=== PATIENT | female | born 1955 | race Caucasian/White ===

== ENCOUNTER 2016-11-14 13:43 | Emergency (ER) | payer OTHER ==
[~2016-11-14] VITALS: Ht 162.6 cm; Wt 61.9 kg
[~2016-11-14 13:43] MED LIST: INSDGI SQ
[2016-11-14 13:53] VITALS: TEMP 36.7; Ht 162.6 cm; Wt 61.9 kg
--- NOTE | 2016-11-14 14:31 | EMERGENCY ROOM VISIT NOTE ---
ED Visit Note First contact with patient: 14:02 Chief Complaint: RIGHT Knee Pain History of Present Illness: This patient is a 61-year-old female who presents to the emergency Department this afternoon for evaluation of her ongoing RIGHT knee pain. She reports that she noticed a "pop" sensation to the knee after she had been in a squatting position. She is had most pain to the anterior surface of the knee which is worse with ambulation and flexion. She denies any previous history of injury or fracture to the affected knee. She denies any numbness or tingling into the distal extremity. She rates her current discomfort as a 10/10. The patient is tried nothing gdbx-asl-ewzbudu for her symptoms. She denies any associated low back pain, hip pain, ankle pain, or foot pain. Medications: Reviewed and discussed with the patient. Allergies: Hydrocodone, tramadol PMH: No pertinent past medical history. SHx: Patient is a 61-year-old female who lives locally. ROS: All pertinent positive and negative review of systems are appropriately documented in the History of Present Illness. Physical Exam: VITAL SIGNS - Vital signs and nursing notes were reviewed. GENERAL - 61-year-old female appearing her stated age and in noticeable discomfort throughout the exam. MUSCULOSKELETAL - RIGHT knee without erythema, edema, and ecchymosis. Mild tenderness to palpation appreciated over the to the anterior and bilateral aspects of the knee. +5/5 strength appreciated bilaterally. No posterior sag sign. RANGE OF MOTION: Greater than 90 Flexion with 0 Extension. PATELLAR APPREHENSION TEST: Unremarkable. VARUS/VALGUS STRESS: Unremarkable. JESSY'S TEST: Without guarding. Strong Endpoint. ANTERIOR/POSTERIOR DRAWER TEST: Without guarding. Strong endpoint. Angie TEST: No catching, popping, or snapping. NEUROLOGIC/VASCULAR - Neurovascularly intact distally with +3/5 dorsalis pedis pulses palpated bilaterally. Normal sensation to light and sharp touch appreciated distally. IMAGING: RIGHT KNEE 3 VIEWS HISTORY: Right anterior knee pain. COMPARISON: None. FINDINGS: There is no fracture or dislocation. Soft tissues are unremarkable. No radiopaque foreign bodies. No knee effusion. IMPRESSION: No fractures. ED Course: Patient was seen and evaluated by myself. X-rays were obtained of the affected knee. Imaging results as above. Images were discussed and reviewed with the patient who acknowledges understanding. Patient will follow-up with her orthopedic surgeon from today's visit. She will return for any changing or worsening symptoms. Patient discharged home in good condition. In evaluation and treatment of this patient following differential diagnoses were considered: The fracture, knee dislocation, patellar fracture, tibial plateau fracture, femur head fracture, ACL injury, PCL injury, MCL injury, LCL injury, pes anserine bursitis, hemarthroses, septic arthritis, or gout. Impression: RIGHT Knee Pain - Likely Meniscal Injury Discharge Instructions: You have been treated in the Emergency Department for Knee Pain - Possible Meniscal Injury. For pain control, you can use the following myqm-mrw-amhserg medicines (if >12 yo): - Regular strength (325mg/tab) Tylenol (acetaminophen) 2 tabs every 4-6 hours as needed. Do not exceed 12 tablets in a 24 hour period. Avoid taking more than 4 grams (4000 mg) of Tylenol per day. This includes any other sources of acetaminophen you may take on a regular basis. - Regular strength (200 mg/tab) Advil (ibuprofen) 1-2 tabs every 4-6 hours as needed. Do not exceed a dose of 3200 mg per day. If this is a recent injury (<24 hrs), ice can be applied to the area of pain for the first 3 days to help decrease pain and inflammation. Ice massages can be performed by freezing water in a paper cup, peeling back the cup to expose the ice and then massaging over the affected area. Follow-up with your orthopedic surgeon from today's visit. Return to the Emergency Department if your current symptoms worsen despite treatment course outlined above. Problem List Medical Problems: (1) Arm pain, right Status: Resolved (2) Arm pain, right Status: Resolved (3) DIAB LORA WO COMPL, TYPE II OR UNSPEC TYPE, NOT UNCNTRLD Status: Chronic (4) Hand contusion Status: Resolved (5) HYPERLIPIDEMIA NEC/NOS Status: Chronic (6) HYPERTENSION NOS Status: Chronic (7) Sinusitis Status: Resolved (8) Viral URI with cough Status: Resolved Current/Historical Medications Scheduled Aspirin (Aspirin Ec), 81 MG PO DAILY Cyanocobalamin (Vitamin B-12), 1,000 MCG PO DAILY Insulin Glargine (Lantus), 12 UNITS SC QAM Lisinopril (Lisinopril), 2.5 MG PO DAILY Metformin Hcl (Glucophage), 500 MG PO TID Simvastatin (Zocor), 20 MG PO QPM Allergies Coded Allergies: Hydrocodone (Verified Adverse Reaction, Unknown, nausea, 11/14/16) [facility] Tramadol (Verified Adverse Reaction, Unknown, nausea, 11/14/16) [facility] Vital Signs Date Time Temp Pulse Resp B/P Pulse Ox O2 Delivery O2 Flow Rate FiO2 11/14/16 14:54 83 17 111/74 96 11/14/16 13:53 36.7 86 18 111/74 97 Room Air Departure Information Impression Primary Impression: Pain of meniscus of right knee Dispostion Home / Self-Care Condition GOOD Referrals Pro,Aldair Fernandes M.D. (PCP) Que Dwyer, DO Forms HOME CARE DOCUMENTATION FORM, IMPORTANT VISIT INFORMATION Patient Instructions ED Knee Pain Meniscus Injury [place], My [facility] Additional Instructions You have been treated in the Emergency Department for Knee Pain - Possible Meniscal Injury. For pain control, you can use the following hucx-var-qgvuvws medicines (if >12 yo): - Regular strength (325mg/tab) Tylenol (acetaminophen) 2 tabs every 4-6 hours as needed. Do not exceed 12 tablets in a 24 hour period. Avoid taking more than 4 grams (4000 mg) of Tylenol per day. This includes any other sources of acetaminophen you may take on a regular basis. - Regular strength (200 mg/tab) Advil (ibuprofen) 1-2 tabs every 4-6 hours as needed. Do not exceed a dose of 3200 mg per day. If this is a recent injury (<24 hrs), ice can be applied to the area of pain for the first 3 days to help decrease pain and inflammation. Ice massages can be performed by freezing water in a paper cup, peeling back the cup to expose the ice and then massaging over the affected area. Follow-up with your orthopedic surgeon from today's visit. Return to the Emergency Department if your current symptoms worsen despite treatment course outlined above.
--- NOTE | 2016-11-14 14:31 | DIAGNOSTIC IMAGING REPORT ---
RIGHT KNEE 3 VIEWS HISTORY: Right anterior knee pain. COMPARISON: None. FINDINGS: There is no fracture or dislocation. Soft tissues are unremarkable. No radiopaque foreign bodies. No knee effusion. IMPRESSION: No fractures. Electronically signed by: Blaise Rand M.D. 11/14/2016 2:29 PM Dictated Date/Time: 11/14/2016 2:27 PM
[2016-11-14 14:54] VITALS: BP 111/74; PULSE 83; O2SAT 96
--- NOTE | 2016-11-14 15:00 | EMERGENCY ROOM VISIT NOTE ---
ED Visit Note First contact with patient: 14:02 I have seen and examined this patient with Michael Earl and generally agree with the treatment plan as discussed. Problem List Medical Problems: (1) Arm pain, right Status: Resolved (2) Arm pain, right Status: Resolved (3) DIAB LORA WO COMPL, TYPE II OR UNSPEC TYPE, NOT UNCNTRLD Status: Chronic (4) Hand contusion Status: Resolved (5) HYPERLIPIDEMIA NEC/NOS Status: Chronic (6) HYPERTENSION NOS Status: Chronic (7) Sinusitis Status: Resolved (8) Viral URI with cough Status: Resolved Current/Historical Medications Scheduled Aspirin (Aspirin Ec), 81 MG PO DAILY Cyanocobalamin (Vitamin B-12), 1,000 MCG PO DAILY Insulin Glargine (Lantus), 12 UNITS SC QAM Lisinopril (Lisinopril), 2.5 MG PO DAILY Metformin Hcl (Glucophage), 500 MG PO TID Simvastatin (Zocor), 20 MG PO QPM Allergies Coded Allergies: Hydrocodone (Verified Adverse Reaction, Unknown, nausea, 11/14/16) [facility] Tramadol (Verified Adverse Reaction, Unknown, nausea, 11/14/16) [facility] Vital Signs Date Time Temp Pulse Resp B/P Pulse Ox O2 Delivery O2 Flow Rate FiO2 11/14/16 14:54 83 17 111/74 96 11/14/16 13:53 36.7 86 18 111/74 97 Room Air Departure Information Impression Primary Impression: Pain of meniscus of right knee Dispostion Home / Self-Care Condition GOOD Referrals Pro,Aldair Fernandes M.D. (PCP) Que Dwyer, DO Forms HOME CARE DOCUMENTATION FORM, Work Instructions, IMPORTANT VISIT INFORMATION Patient Instructions My [facility], ED Knee Pain Meniscus Injury Poss Additional Instructions You have been treated in the Emergency Department for Knee Pain - Possible Meniscal Injury. For pain control, you can use the following rskp-rpx-flxunbl medicines (if >12 yo): - Regular strength (325mg/tab) Tylenol (acetaminophen) 2 tabs every 4-6 hours as needed. Do not exceed 12 tablets in a 24 hour period. Avoid taking more than 4 grams (4000 mg) of Tylenol per day. This includes any other sources of acetaminophen you may take on a regular basis. - Regular strength (200 mg/tab) Advil (ibuprofen) 1-2 tabs every 4-6 hours as needed. Do not exceed a dose of 3200 mg per day. If this is a recent injury (<24 hrs), ice can be applied to the area of pain for the first 3 days to help decrease pain and inflammation. Ice massages can be performed by freezing water in a paper cup, peeling back the cup to expose the ice and then massaging over the affected area. Follow-up with your orthopedic surgeon from today's visit. Return to the Emergency Department if your current symptoms worsen despite treatment course outlined above.
[2017-07-03] MEDS ORDERED: INSDGI SC (14:11)
[2017-07-03] MEDS ORDERED: SIMV20TA2 PO (14:29)
[2017-07-03] MEDS ORDERED: LISI2.5T5 PO (14:29)
[2017-07-03] MEDS ORDERED: CYAN10005 PO (14:29)
[2017-07-03] MEDS ORDERED: ASPI81TA28 PO (18:55)
[2017-07-03] MEDS ORDERED: GLC/500 PO (18:55)
== END 2016-11-14 14:55 | disposition home or self-care (01) ==
LOC: C.EDB 13:45 → C.EDD 14:55
DX: M25.561 Pain in right knee (principal); I10 Essential (primary) hypertension; E11.9 Type 2 diabetes mellitus without complications; E78.5 Hyperlipidemia, unspecified; Z86.19 Personal history of other infectious and parasitic diseases; Z87.828 Personal history of other (healed) physical injury and trauma; Z79.4 Long term (current) use of insulin; Z79.82 Long term (current) use of aspirin; Z79.84 Long term (current) use of oral hypoglycemic drugs; Z79.899 Other long term (current) drug therapy; Z88.6 Allergy status to analgesic agent

== ENCOUNTER 2017-03-22 16:56 | Emergency (ER) | payer OTHER ==
[~2017-03-22] VITALS: Ht 162.6 cm; Wt 61.3 kg
[2017-03-22 17:06] VITALS: TEMP 36.6; Ht 162.6 cm; Wt 61.3 kg
[2017-03-22] MEDS ORDERED: IBUPROFEN 800 MG TAB PO STA (18:09)
[2017-03-22 18:19] VITALS: BP 131/64; PULSE 80; O2SAT 96
--- NOTE | 2017-03-22 18:32 | EMERGENCY ROOM VISIT NOTE ---
ED Visit Note First contact with patient: 17:50 CHIEF COMPLAINT: Ankle pain HISTORY OF PRESENT ILLNESS: This 62-year-old female patient presents to the emergency department with 3 day history of spontaneous right ankle pain. The patient complains of pain along the outside of the ankle. The patient denies pain of the foot. The patient rates the pain as dull and 8/10. The patient is able to bear weight on the foot. Constant pain, worse with movement, weight bearing, and the dependent position. No knee pain, the patient is able to move their toes. No numbness or weakness of the foot, no laceration. The patient has possibly had a previous fracture to this ankle when she was 4 years old. The patient has taken 200 mg ibuprofen for the pain approximately 5 hours ago. The patient denies any other injury or discomfort. She does report swelling but denies redness. REVIEW OF SYSTEMS: A 6 system review of systems was completed with positives and pertinent negatives listed in the HPI. ALLERGIES: Vicodin, tramadol. MEDICATIONS: Vitamin B12, Lisinopril, simvastatin, metformin, aspirin, Lantus. PMH: Diabetes, hypertension, hyperlipidemia, vitamin B12 deficiency. SOCIAL HISTORY: Pt. lives locally with family. She is a current every day smoker. She denies alcohol or drug use. PHYSICAL EXAM: Vital Signs: Reviewed Nurse's notes, vital signs stable. GENERAL : 62-year-old female, no acute distress, appears in mild pain, well-developed, well-nourished. MENTAL STATUS: Alert, oriented to person place and time, and cooperative. MUSCULOSKELETAL: The right ankle is not swollen but is tender over the lateral malleolus, but the skin is intact and there is no ligamentous instability. There is no fifth metatarsal tenderness. There is no tenderness over the rest of the foot. There is no calf or tibia/fibular tenderness. There is no visual deformity. The foot and toes are warm and well-perfused. Dorsalis pedis pulse 2+. Sensation to pain and light touch is intact. Capillary refill less than 2 seconds. EMERGENCY DEPARTMENT COURSE: I examined the patient. I discussed with her the option to xray the ankle, however, no injury noted to ankle or foot, so extremely low suspicion for fracture. Patient is scheduled to see podiatry on Sunday regarding foot pain. Offered x-ray however patient declines and states that she will follow up with podiatry. [] was applied to the ankle under my direction and the position was satisfactory. Neurovascular status was rechecked and intact. The patient was instructed on the use of crutches. The patient was discharged home in good condition. DIAGNOSIS: Right ankle pain DIFFERENTIAL DIAGNOSIS: Contusion, sprain, strain, fracture, stress fracture, overuse injury. DISCHARGE INSTRUCTIONS: Ice and elevation for 2 days, use crutches to avoid weight bearing of the right ankle, wear the joseline wrap and sneakers when up walking around. Do not get the wrap wet. Ibuprofen, 600 mg and Tylenol 1000 mg every 6 hours if needed for pain. See your doctor or an orthopedic surgeon/ code machine operator if there is no improvement in 4 - 5 days. Problem List Medical Problems: (1) Arm pain, right Status: Resolved (2) Arm pain, right Status: Resolved (3) DIAB LORA WO COMPL, TYPE II OR UNSPEC TYPE, NOT UNCNTRLD Status: Chronic (4) Hand contusion Status: Resolved (5) HYPERLIPIDEMIA NEC/NOS Status: Chronic (6) HYPERTENSION NOS Status: Chronic (7) Sinusitis Status: Resolved (8) Viral URI with cough Status: Resolved Current/Historical Medications Scheduled Aspirin (Aspirin Ec), 81 MG PO DAILY Cyanocobalamin (Vitamin B-12), 1,000 MCG PO DAILY Insulin Glargine (Lantus), 12 UNITS SC QAM Lisinopril (Lisinopril), 2.5 MG PO DAILY Metformin Hcl (Glucophage), 500 MG PO TID Simvastatin (Zocor), 20 MG PO QPM Scheduled PRN Ibuprofen Tab (Motrin), 600 MG PO Q6H PRN for Pain Allergies Coded Allergies: Hydrocodone (Verified Adverse Reaction, Unknown, nausea, 11/14/16) [facility] Tramadol (Verified Adverse Reaction, Unknown, nausea, 11/14/16) [facility] Vital Signs Date Time Temp Pulse Resp B/P (MAP) Pulse Ox O2 Delivery O2 Flow Rate FiO2 03/22/17 18:19 80 18 131/64 96 Room Air 03/22/17 17:06 36.6 84 20 110/57 96 Room Air Medications Administered Medications (Trade) Dose Ordered Sig/Domenica Route Start Time Stop Time Status Last Admin Dose Admin Ibuprofen (Motrin Tab) 800 mg NOW STAT PO 03/22/17 18:09 03/22/17 18:11 DC 03/22/17 18:18 800 MG Departure Information Impression Primary Impression: Ankle pain, right Dispostion Home / Self-Care Condition GOOD Prescriptions Ibuprofen Tab (MOTRIN) 600 Mg Tab 600 MG PO Q6H Y for Pain, #60 TAB Prov: Bonny Murray PA-C 03/22/17 Referrals Pro,Aldair Fernandes M.D. (PCP) Patient Instructions My [facility] Additional Instructions ORTHOPEDIC INSTRUCTIONS: Ibuprofen(Motrin, Advil) may be used for fever or pain. Use 600mg every six hours as needed. Take with food. Avoid using more than 2400mg in a 24 hour period. Do not use 2400mg per day for more than three consecutive days without physician direction. Prolonged inappropriate use can lead to stomach upset or ulcers. (AND/OR) Acetaminophen(Tylenol) may be used for fever or pain. Use 1000mg every six hours as needed. Avoid using more than 4000mg in a 24 hour period. Ice compresses for 20 minutes at a time four times daily for 2-3 days. Rest and elevate your injury. Make sure to pad under the splint with a sock, gauze, or an JOSELINE wrap. Do not get the splint wet. If your splint feels excessively tight, you have worsening pain, develop numbness or tingling, or your digits appear blue, loosen the joseline wrap. Then reapply the joseline wrap gently without removing the splint. If your symptoms are not quickly relieved return to the ER for re-evaluation. Return to the ER immediately for any numbness, tingling, severe pain, extreme swelling in the extremity or as needed. Follow-up with your primary care physician or podiatry in 2 to 3 days for a recheck of your current condition. Problem Qualifiers Primary Impression: Ankle pain, right Chronicity: acute Qualified Codes: M25.571 - Pain in right ankle and joints of right foot
[2017-03-22] MEDS ORDERED: IBUP-1427 PO (18:41)
[2017-07-03] MEDS ORDERED: INSDGI SC (14:11)
[2017-07-03] MEDS ORDERED: LISI2.5T5 PO (14:29)
[2017-07-03] MEDS ORDERED: SIMV20TA2 PO (14:29)
[2017-07-03] MEDS ORDERED: CYAN10005 PO (14:29)
[2017-07-03] MEDS ORDERED: ASPI81TA28 PO (18:55)
[2017-07-03] MEDS ORDERED: GLC/500 PO (18:55)
== END 2017-03-22 18:54 | disposition home or self-care (01) ==
LOC: C.EDB 16:57 → C.EDD 18:54
DX: M25.571 Pain in right ankle and joints of right foot (principal); Z79.82 Long term (current) use of aspirin; Z79.4 Long term (current) use of insulin; Z79.899 Other long term (current) drug therapy; E11.9 Type 2 diabetes mellitus without complications; I10 Essential (primary) hypertension; E78.5 Hyperlipidemia, unspecified; E53.8 Deficiency of other specified B group vitamins; F17.210 Nicotine dependence, cigarettes, uncomplicated

== ENCOUNTER 2017-04-21 20:46 | Emergency (ER) | payer OTHER ==
[~2017-04-21] VITALS: Ht 162.6 cm; Wt 60.7 kg
[~2017-04-21 20:46] MED LIST changes: +IBUP-1427 PO; -INSDGI SQ
[2017-04-21 20:47] VITALS: TEMP 36.4; Ht 162.6 cm; Wt 60.7 kg
[2017-04-21] MEDS ORDERED: EMPTY 8 DRAM VIAL ONE (21:30)
[2017-04-21 21:34] VITALS: BP 111/54; PULSE 80; O2SAT 94
--- NOTE | 2017-04-21 21:41 | EMERGENCY ROOM VISIT NOTE ---
History Report prepared by Anthony: Kylee Rouse Under the Supervision of: Dr. Chiquita Chavez M.D. First contact with patient: 20:54 Chief Complaint: RASH Stated Complaint: RASH ON RT FOOT History of Present Illness The patient is a 62 year old female who presents to the Emergency Room with complaints of persistent rash starting 3 days ago. The rash was initially only on her left foot. She noticed today that the rash had spread to her right foot. She notes that she did start wearing new sneakers. They were not tight. She was not wearing socks. She reports burning and itching where the rash is located. She did wash her feet last night. She denies any bloody stools. Source of History: patient Onset: 3 days ago Position: foot (bilateral) Quality: other (rash) Timing: other (persistent) Associated Symptoms: No hematochezia Note: Pt reports burning and itching. Review of Systems See HPI for pertinent positives & negatives. A total of 10 systems reviewed and were otherwise negative. Past Medical & Surgical Medical Problems: (1) Arm pain, right (2) Arm pain, right (3) DIAB LORA WO COMPL, TYPE II OR UNSPEC TYPE, NOT UNCNTRLD (4) Hand contusion (5) HYPERLIPIDEMIA NEC/NOS (6) HYPERTENSION NOS (7) Sinusitis (8) Viral URI with cough Family History Diabetes mellitus Social History Smoking Status: Current Every Day Smoker Alcohol Use: none Drug Use: none Marital Status: single Housing Status: lives alone Occupation Status: disabled Current/Historical Medications Scheduled Aspirin (Aspirin Ec), 81 MG PO DAILY Cyanocobalamin (Vitamin B-12), 1,000 MCG PO DAILY Insulin Glargine (Lantus), 12 UNITS SC QAM Lisinopril (Lisinopril), 2.5 MG PO DAILY Metformin Hcl (Glucophage), 500 MG PO TID Simvastatin (Zocor), 20 MG PO QPM Allergies Coded Allergies: Hydrocodone (Verified Adverse Reaction, Unknown, nausea, 11/14/16) [facility] Tramadol (Verified Adverse Reaction, Unknown, nausea, 11/14/16) [facility] Physical Exam Vital Signs Date Time Temp Pulse Resp B/P (MAP) Pulse Ox O2 Delivery O2 Flow Rate FiO2 04/21/17 21:34 80 18 111/54 94 04/21/17 20:47 36.4 88 18 119/65 95 Room Air Physical Exam Vital signs reviewed. General: Well-appearing female, in no significant distress. HEENT: No scleral icterus, PERRLA, neck supple. Atraumatic. Cardiovascular: Regular rate and rhythm, no extra sounds. Pulmonary: Clear to auscultation bilaterally, normal work of breathing. Abdomen: Soft, nontender, nondistended, positive bowel sounds. Musculoskeletal: Atraumatic, no peripheral edema. Neurologic: Patient awake alert and oriented x 3, full strength in all 4 extremities. Cranial nerves 2 through 12 grossly intact. Skin: Warm, dry, 3 x 4 cm faint petechial nonblanching rash to the dorsum of feet bilaterally. Medical Decision & Procedures Medications Administered Medications (Trade) Dose Ordered Sig/Domenica Route Start Time Stop Time Status Last Admin Dose Admin Diphenhydramine HCl (Benadryl Cap) 50 mg NOW ONCE PO 04/21/17 21:15 04/21/17 21:16 DC 04/21/17 21:29 50 MG ED Course 2107: Past medical records reviewed. The patient was evaluated in room B5. A complete history and physical examination was performed. 2114: Benadryl Cap 50 mg PO. 2119: Upon reevaluation, the patient appeared to have improvement of her symptoms. I discussed findings with her. She verbalized agreement of the treatment plan. She was discharged home. Medical Decision Differential diagnosis: Etiologies such as contact dermatitis, viral exanthem, urticaria, allergic reaction, Lamar-Fabian syndrome, toxic epidermal necrolysis, erythema multiforme, cellulitis, scabies, HSV, varicella, zoster, eczema, staph scalded skin syndrome, fungal infection, as well as others were entertained. Medication Reconciliation: I attest that I have personally reviewed the patient' s current medication list. Blood Pressure Screening: Patient was found to have normal blood pressure on screening and does not require follow-up. This patient was evaluated and appeared to be in no significant distress. Physical exam is consistent with a traumatic petechial rash to the dorsum of the feet bilaterally. Patient states she does not wear socks and she has new sneakers. I suspect these have been causing some trauma. There is no evidence of petechial rash to the plantar surface of the feet, belt line, buttocks or bra line. Patient was informed of the findings, asked to follow-up with her primary care physician this week. She will return to the ER for worsening of symptoms or any medical concerns. Impression Primary Impression: Pruritic rash Additional Impression: Petechial rash Scribe Attestation The scribe's documentation has been prepared under my direction and personally reviewed by me in its entirety. I confirm that the note above accurately reflects all work, treatment, procedures, and medical decision making performed by me. Departure Information Dispostion Home / Self-Care Referrals Aldair Fish M.D. (PCP) Forms HOME CARE DOCUMENTATION FORM, IMPORTANT VISIT INFORMATION, WORK / SCHOOL INSTRUCTIONS Patient Instructions My [facility] Additional Instructions Diagnosis: Rash Benadryl 25-50 mg every 6 hours as needed for itching Wash with warm water and soap Avoid rubbing, tight shoes. Follow up with your doctor this week for reevaluation. Return to the ED for reevaluation if symptoms worsen or spread. Problem Qualifiers
[2017-07-03] MEDS ORDERED: INSDGI SC (14:11)
[2017-07-03] MEDS ORDERED: LISI2.5T5 PO (14:29)
[2017-07-03] MEDS ORDERED: CYAN10005 PO (14:29)
[2017-07-03] MEDS ORDERED: SIMV20TA2 PO (14:29)
[2017-07-03] MEDS ORDERED: ASPI81TA28 PO (18:55)
[2017-07-03] MEDS ORDERED: GLC/500 PO (18:55)
== END 2017-04-21 21:35 | disposition home or self-care (01) ==
LOC: C.EDB 20:46
DX: R23.3 Spontaneous ecchymoses (principal); L29.8 Other pruritus; R21 Rash and other nonspecific skin eruption; E11.9 Type 2 diabetes mellitus without complications; E78.5 Hyperlipidemia, unspecified; I10 Essential (primary) hypertension; Z83.3 Family history of diabetes mellitus; F17.210 Nicotine dependence, cigarettes, uncomplicated

== ENCOUNTER → 2017-04-25 | Outpatient (CLI) | payer OTHER ==
[~2017-04-25] MED LIST changes: +AMOX875T PO; +ASPI81TA28 PO; +CYAN10005 PO; +GLC/500 PO; -IBUP-1427 PO; +INSDGI SC; +LISI2.5T5 PO; +SIMV20TA2 PO
[2017-04-25 13:27] LABS: HEMATOCRIT 42.6 % (37-47); MEAN CELL VOLUME 93.8 fL (80-100); MEAN CORPUSCULAR HEMOGLOBIN 32.4 pg (25-34); MEAN CORPUSCULAR HGB CONC 34.5 g/dl (32-36); MEAN PLATELET VOLUME 9.5 fL (7.4-10.4); PLATELET COUNT 290 K/uL (130-400); RED BLOOD COUNT 4.54 M/uL (4.2-5.4)
== END | disposition home or self-care (01) ==
LOC: C.LABBC 12:01
PROVIDERS: ATTEND Physician Assistant Medical
DX: R23.3 Spontaneous ecchymoses (principal)

== ENCOUNTER → 2017-05-07 | Outpatient (CLI) | payer OTHER ==
[2017-05-07 12:13] LABS: BASO % 0.4 %; BASO ABS # 0.03 K/uL (0-0.2); COMPLETE YES; HEMATOCRIT 45.1 % (37-47); IG% 0.3 %; LYMPH % 26.5 %; LYMPH ABS # 2.08 K/uL (1.2-3.4); MEAN CELL VOLUME 96.4 fL (80-100); MEAN CORPUSCULAR HEMOGLOBIN 33.5 pg (25-34); MEAN CORPUSCULAR HGB CONC 34.8 g/dl (32-36); MEAN PLATELET VOLUME 9.8 fL (7.4-10.4); MONO % 12.5 %; NEUT % 58.3 %; PLATELET COUNT 277 K/uL (130-400); RED BLOOD COUNT 4.68 M/uL (4.2-5.4); WHITE BLOOD COUNT 7.86 K/uL (4.8-10.8)
[2017-05-07 12:23] LABS: ESTIMATED AVERAGE GLUCOSE 137 mg/dl; HA1C FLAG Normal (Normal)
[2017-05-07 12:34] LABS: ALT/SGPT 30 U/L (12-78); BLOOD UREA NITROGEN 9 mg/dl (7-18); BUN/CREATININE RATIO 13.1 (10-20); CALCIUM 9.3 mg/dl (8.5-10.1); CARBON DIOXIDE 28 mmol/L (21-32); CHLORIDE 107 mmol/L (98-107); CHOLESTEROL 161 mg/dl (0-200); CREATININE 0.72 mg/dl (0.60-1.20); GLUCOSE 122 mg/dl (70-99); POTASSIUM 4.4 mmol/L (3.5-5.1); SODIUM 140 mmol/L (136-145)
[2017-05-07 12:37] LABS: ALB/GLOB RATIO 1.1 (0.9-2); ALKALINE PHOSPHATASE 99 U/L (45-117); AST/SGOT 13 U/L (15-37); CHOLESTEROL/HDL RATIO 3.1; HDL CHOLESTEROL 52 mg/dl; LDL CHOLESTEROL CALCULATED 98 mg/dl; TRIGLYCERIDES 53 mg/dl (0-150); VERY LOW DENSITY LIPOPROT CALC 11 mg/dl
== END | disposition home or self-care (01) ==
LOC: C.LAB1850 10:14
PROVIDERS: ATTEND Internal Medicine
DX: E53.8 Deficiency of other specified B group vitamins (principal); E11.9 Type 2 diabetes mellitus without complications; R25.2 Cramp and spasm; E78.5 Hyperlipidemia, unspecified

== ENCOUNTER 2017-07-03 21:37 | Emergency (ER) | payer OTHER ==
[~2017-07-03 21:37] MED LIST changes: -AMOX875T PO
[2017-07-03 21:40] VITALS: BP 129/53; PULSE 84; TEMP 36.7; O2SAT 94
[2017-07-03] MEDS ORDERED: AMOXICIL/CLAVU 875MG HOME PACK PO ONE (22:15)
[2017-07-03] MEDS ORDERED: AMOX875T PO (22:16)
--- NOTE | 2017-07-03 22:37 | EMERGENCY ROOM VISIT NOTE ---
History First contact with patient: 22:08 Chief Complaint: HAND PAIN/INJURY Stated Complaint: RIGHT HAND History of Present Illness The patient is a 62 year old female who presents to the Emergency Room with complaints of right hand pain worsening over the past one to 2 days. The patient believes that she was scratched by her dog 4 days ago and did have small scab on the posterior aspect of the right hand. The patient states that it became more tender over the past 2 days, and the scab fell off. She states that now she has redness on the back of the hand and she is concerned for infection. She rates her discomfort a 4/10. She believes that she is up-to- date on her tetanus. Review of Systems More than 10 systems were reviewed and otherwise negative with the exception of history of present illness. Past Medical/Surgical History Medical Problems: (1) Arm pain, right (2) Arm pain, right (3) DIAB LORA WO COMPL, TYPE II OR UNSPEC TYPE, NOT UNCNTRLD (4) Hand contusion (5) HYPERLIPIDEMIA NEC/NOS (6) HYPERTENSION NOS (7) Sinusitis (8) Viral URI with cough Family History Diabetes mellitus Social History Smoking Status: Current Every Day Smoker Alcohol Use: none Drug Use: none Marital Status: single Housing Status: lives alone Occupation Status: disabled Current/Historical Medications Scheduled Amoxicillin & Pot Clavulanate (Augmentin 875-125 mg), 1 TAB PO BID Aspirin (Aspirin Ec), 81 MG PO DAILY Cyanocobalamin (Vitamin B-12), 1,000 MCG PO DAILY Insulin Glargine (Lantus), 12 UNITS SC QAM Lisinopril (Lisinopril), 2.5 MG PO DAILY Metformin Hcl (Glucophage), 500 MG PO TID Simvastatin (Zocor), 20 MG PO QPM Physical Exam Vital Signs Date Time Temp Pulse Resp B/P (MAP) Pulse Ox O2 Delivery O2 Flow Rate FiO2 07/03/17 21:40 36.7 84 18 129/53 94 Room Air Physical Exam VITALS: Vitals are noted on the nurse's note and reviewed by myself. Vital signs stable. GENERAL: Well-developed, well-nourished, white female, who is in no acute distress and resting comfortably. Patient is cooperative with the examination. HEART: Regular rate and rhythm without murmurs gallops or rubs. LUNGS: Clear to auscultation bilaterally without wheezes, rales or rhonchi. No retractions or accessory muscle use. SKIN: The skin was with a curvilinear scratch to the posterior aspect of the right hand roughly over the third metacarpal. This measures roughly 2 cm in length. There is no significant drainage or discharge from primary injury. There appears to be cellulitis measuring roughly 2-2.5 cm circumferentially around this area. The patient is able to open and close the hand without difficulty. No lymphangitic streaking. Strength is 5/5. Medical Decision & Procedures Medications Administered Medications (Trade) Dose Ordered Sig/Domenica Route Start Time Stop Time Status Last Admin Dose Admin Amoxicillin/ Clavulanate Potassium (Augmentin 875MG Home Pack) 1 homepack UD ONCE PO 07/03/17 22:15 07/03/17 22:16 DC 07/03/17 22:15 1 HOMEPACK ED Course Physical exam and history were performed. Nursing notes, EMR, and Medication List were personally reviewed. Patient appears to have a abrasion to the posterior aspect of her right hand with accompanying cellulitis. The wound may have been caused by a dog scratch, and specifically not a dog bite. The patient will be given a course of Augmentin and instructions to follow with primary care physician. She was asked to follow-up with her PCP and provided back to the ER with any new, worsening, or concerning symptoms. The chart was completed utilizing [employer] Speech Voice Recognition Software. Grammatical errors, random word insertions, pronoun errors, and incomplete sentences are an occasional consequence of this system due to software limitations, ambient noise, and hardware issues. Any formal questions or concerns about the content, text, or information contained within the body of this dictation should be directly addressed to the provider for clarification. . Medical Decision Differential diagnosis: Etiologies such as cellulitis, abscess, MRSA infection, DVT, necrotizing fasciitis, dermatitis, drug eruption, as well as others were entertained.. Medication Reconcilliation Current Medication List: was personally reviewed by me Blood Pressure Screening Patient's blood pressure: Normal blood pressure Impression Primary Impression: Cellulitis of right hand Departure Information Dispostion Home / Self-Care Condition GOOD Prescriptions Amoxicillin & Pot Clavulanate (Augmentin 875-125 mg) 1 Tab Tab 1 TAB PO BID for 9 Days, #18 TAB Prov: Herbert Mayer PA-C 07/03/17 Forms HOME CARE DOCUMENTATION FORM, IMPORTANT VISIT INFORMATION Patient Instructions My [facility] Additional Instructions You were seen and evaluated today on an emergency basis only. This is not a substitute for, or an effort to provide, complete comprehensive medical care. It is not possible to recognize and treat all injuries or illnesses in a single emergency department visit. For this reason it is recommended that you followup with your primary care physician next week for ongoing care and evaluation. Amoxicillin Clavulanate (Augmentin) 875mg: Take one pill twice daily for 10 total days for your infection. All antibiotics can cause diarrhea. If this occurs and you feel worse or it does not resolve in 1-2 days follow up with your doctor or return to the Emergency Department as this could be signs of serious underlying problems. Any medication can cause an allergic reaction, stop the pills immediately and return to the ER for rash, hives, breathing difficulties, or swelling. You are welcome to return to the emergency department anytime with new, worsening, or concerning symptoms.
== END 2017-07-03 22:33 | disposition home or self-care (01) ==
LOC: C.EDB 21:39 → C.EDC 22:33
DX: L03.113 Cellulitis of right upper limb (principal); E11.9 Type 2 diabetes mellitus without complications; I10 Essential (primary) hypertension; E78.5 Hyperlipidemia, unspecified; F17.200 Nicotine dependence, unspecified, uncomplicated; Z87.828 Personal history of other (healed) physical injury and trauma; Z86.19 Personal history of other infectious and parasitic diseases; Z79.4 Long term (current) use of insulin; Z79.82 Long term (current) use of aspirin; Z79.899 Other long term (current) drug therapy; Z83.3 Family history of diabetes mellitus

== ENCOUNTER 2017-10-30 00:03 | Emergency (ER) | payer OTHER ==
[~2017-10-30] VITALS: Ht 162.6 cm; Wt 62.1 kg
[2017-10-30 00:15] VITALS: TEMP 36.8; Ht 162.6 cm; Wt 62.1 kg
[2017-10-30] MEDS ORDERED: LIDOCAINE/EPINEPH/TETRACAINE 1 EA SYR ONE (00:35)
--- NOTE | 2017-10-30 01:13 | EMERGENCY ROOM VISIT NOTE ---
ED Visit Note First contact with patient: 00:27 I saw this patient in conjunction with Sarika Peralta PA-C. I agree with her decision making and treatment plan.
[2017-10-30 01:46] VITALS: BP 121/65; PULSE 84; O2SAT 94
--- NOTE | 2017-10-30 01:46 | EMERGENCY ROOM VISIT NOTE ---
History First contact with patient: 00:27 Chief Complaint: LACERATION/CUT (SUT/DERMABOND) Stated Complaint: FELL-CUT FOREHEAD NEAR LFT EYE Nursing Triage Summary: Pt states she was standing on a stool in her kitchen when the stool tipped over and she fell. Pt states she hit her head off a wood cabinet. Laceration noted to left eyebrow. Pt denies LOC. History of Present Illness The patient is a 62 year old female who presents to the Emergency Room with complaints of accidental fall just prior to arrival when she was on a stool and slipped and struck her head on the wood cabinet sustaining a laceration. Patient denies loss of consciousness, headache, neck pain, facial pain, dental pain, chest pain, dyspnea, abdominal pain or any other medical complaints. Tetanus is current. No alcohol use. Review of Systems See HPI for pertinent positives & negatives. A total of 10 systems reviewed and were otherwise negative. Past Medical/Surgical History Medical Problems: (1) Arm pain, right (2) Arm pain, right (3) DIAB LROA WO COMPL, TYPE II OR UNSPEC TYPE, NOT UNCNTRLD (4) Hand contusion (5) HYPERLIPIDEMIA NEC/NOS (6) HYPERTENSION NOS (7) Sinusitis (8) Viral URI with cough Family History Diabetes mellitus Social History Smoking Status: Current Every Day Smoker Alcohol Use: none Drug Use: none Marital Status: single Housing Status: lives alone Occupation Status: disabled Current/Historical Medications Scheduled Aspirin (Aspirin Ec), 81 MG PO DAILY Cyanocobalamin (Vitamin B-12), 1,000 MCG PO DAILY Insulin Glargine (Lantus), 12 UNITS SC QAM Lisinopril (Lisinopril), 2.5 MG PO HS Metformin Hcl (Glucophage), 500 MG PO TID Simvastatin (Zocor), 20 MG PO HS Physical Exam Vital Signs Date Time Temp Pulse Resp B/P (MAP) Pulse Ox O2 Delivery O2 Flow Rate FiO2 10/30/17 00:15 36.8 89 18 111/60 94 Room Air Physical Exam PHYSICAL EXAM: VITALS: Vitals are noted on the nurse's note and reviewed by myself. Vital signs stable. GENERAL: Pleasant female answering questions appropriately, in no acute distress , nondiaphoretic, well-developed well-nourished. SKIN: 3 cm left forehead laceration through the eyebrow that is gaping and appears clean The rest of the skin was without obvious lacerations or abrasions. Capillary reflex less than 2 seconds. HEAD: Normocephalic EARS: External auditory canals clear, tympanic membranes pearly damon without erythema or effusion bilaterally. No hemotympanums. No puckett sign. No mastoid tenderness. EYES: Pupils equal round and reactive to light and accommodation. Conjunctivae without injection, sclerae without icterus. Extraocular movements intact. NOSE: Patent, turbinates without inflammation or discharge. No sinus tenderness. No septal hematoma or bleeding. FACE: No facial bone tenderness. Full range of motion of the jaw without tenderness. MOUTH: Mucous membranes moist. Pharynx without erythema or exudate. Uvula midline. Airway patent. Tongue does not deviate. NECK: Supple without nuchal rigidity. Cervical spine is nontender. Full range of motion of the neck without tenderness. No JVD. HEART: Regular rate and rhythm LUNGS: Clear to auscultation bilaterally without wheezes, rales or rhonchi. No dullness to percussion. No retractions or accessory muscle use. No chest wall tenderness. ABDOMEN: Positive bowel sounds x 4. Normal tympanic percussion. Soft, nontender, without masses or organomegaly. No guarding or rebound tenderness. MUSCULOSKELETAL: No tenderness of the thoracic or lumbar spine. No tenderness with pelvic rocking. Full range of motion without tenderness to palpation in all extremities. Normal gait. Strength 5/5 throughout. NEURO: Patient was alert and oriented to person place and time. Normal Mini- Mental status exam. Normal sensation to light and sharp touch. Cerebellar function intact. No focal neurological deficits. Medical Decision & Procedures Medications Administered Medications (Trade) Dose Ordered Sig/Domenica Route Start Time Stop Time Status Last Admin Dose Admin Tetracaine/ Epinephrine/ Lidocaine (L.e.t. Gel 4%/ 1:100/0.5%) 1 ea STK-MED ONCE .ROUTE 10/30/17 00:35 10/30/17 00:36 DC 10/30/17 00:41 1 EA Procedure Location: face Total length: 3cm Complexity: simple Verbal consent was obtained after the risks and benefits were explained, including but not limited to bleeding, scarring, infection, pain, and bone/joint /nerve damage. At this time, the risks of the procedure are less than the risks of NOT performing the procedure. A time out was taken and the correct patient and site identified. The skin was prepped with betadine. The target area was anesthetized with LET. Copious irrigation was performed using NSS. The skin was re-prepped with betadine and a sterile field set. The wound was explored for foreign bodies and none found. Examination revealed no injury to deep structures such as tendons, bone, or significant blood vessels. Debridement was not performed. The wound edges were approximated using 8, 6-0 simple interrupted nylon sutures. Hemostasis and excellent approximation was achieved. Antibacterial ointment and a sterile dressing applied. Detailed wound care instructions and signs and symptoms of infection reviewed with the pt. No complications and the patient tolerated the procedure well. ED Course Prior records/ancillary studies reviewed. Triage Nursing notes reviewed. The patient's history was concerning for traumatic head injury Differential diagnosis: Etiologies such as concussion, contusion, fracture, subdural hematoma, epidural hematoma, intraparenchymal hemorrhage, as well as other traumatic pathologies were entertained. Physical examination findings: As above. ER treatment provided: laceration repaired as above On reassessment the patient felt better. Diagnostics interpreted by me: Imaging studies: Head CT negative for intracranial bleed per radiology It appears the patient has a head injury with laceration from a fall. Head CT was negative. Laceration repaired as above. Patient felt better and had no medical complaints. She was neurovascularly and neurologically intact. She is counseled on head injury signs and symptoms and on laceration care. Tetanus is current. She is advised follow-up family care in a few days or here in the ER sooner for headache, fevers, confusion, worsening signs or symptoms or as needed. Patient and related out of the ER without difficulties. By the evaluation outlined above emergent etiologies such as fracture, subdural hematoma, epidural hematoma, intraparenchymal hemorrhage, as well as others were deemed relatively unlikely. The pt informed about the findings as listed above. All questions were answered and pleased with the treatment. Return instructions were outlined and the patient was discharged in stable condition. Referral: The patient was referred back to their primary care physician for follow-up in 2 to 3 days for a recheck of the current condition. Case reviewed with my attending Medical Decision As above Head Trauma GCS Score: 15 Medication Reconcilliation Current Medication List: was personally reviewed by me Blood Pressure Screening Patient's blood pressure: Normal blood pressure Impression Primary Impression: Head injury Additional Impression: Facial laceration Departure Information Dispostion Home / Self-Care Condition GOOD Forms HOME CARE DOCUMENTATION FORM, IMPORTANT VISIT INFORMATION Patient Instructions My [facility], ED Head Injury Closed, ED Laceration All Additional Instructions Keep wound clean and dry. Do not allow any crusting or dried blood to accumulate on sutures. If this occurs, use a 1:1 solution of hydrogen peroxide/ water on a Q-tip to clean the wound. Use an antibiotic ointment for 3-4 days, then let wound dry. Suture removal in 5-7 days. Return sooner for any signs of infection (increasing redness, swelling, drainage). Ice and elevate for swelling and pain. Keep covered when in sun until sutures removed then SPF 50 or higher for one year. Vitamin E oil if desired two weeks after suture removal for reduction of scar Read head injury handout and return for any symptoms. Tylenol 1000 mg as needed for pain (Maximum 3000 mg Tylenol in 24 hr period). Avoid alcohol and contact sports/activities for one week and follow up with family doctor prior to returning to these activities if still symptomatic. Ice and elevate head. If your symptoms persist more than a week then follow up with the concussion clinic. Call [phone]. Return to ER sooner for headache, fevers, confusion, worsening signs or symptoms or as needed. Follow-up family care in 2-3 days for reevaluation. Problem Qualifiers Primary Impression: Head injury Encounter type: initial encounter Qualified Codes: S09.90XA - Unspecified injury of head, initial encounter
--- NOTE | 2017-10-30 07:56 | DIAGNOSTIC IMAGING REPORT ---
HEAD CT NONCONTRAST CT DOSE: 614.27 mGy.cm HISTORY: fall, head injury TECHNIQUE: Multiaxial CT images of the head were performed without the use of intravenous contrast. Automated exposure control was utilized for this study. A dose lowering technique was utilized adhering to the principles of ALARA. Comparison: Head CT 03/13/2013. Findings: The paranasal sinuses and mastoid air cells are clear. The calvarium and skull base are intact. The ventricles and sulci are within normal limits. There is no mass, hematoma, midline shift, or acute infarct . Left supraorbital soft tissue laceration. Impression: No acute intracranial abnormality. Left supraorbital soft tissue laceration. Electronically signed by: Blaise Rand M.D. 10/30/2017 7:55 AM Dictated Date/Time: 10/30/2017 7:05 AM
== END 2017-10-30 01:48 | disposition home or self-care (01) ==
LOC: C.EDB 00:04 → C.EDC 01:48
DX: S09.90XA Unspecified injury of head, initial encounter (principal); S01.81XA Laceration without foreign body of other part of head, initial encounter; W17.89XA Other fall from one level to another, initial encounter; W22.8XXA Striking against or struck by other objects, initial encounter; E11.9 Type 2 diabetes mellitus without complications; I10 Essential (primary) hypertension; E78.5 Hyperlipidemia, unspecified; F17.200 Nicotine dependence, unspecified, uncomplicated; Z83.3 Family history of diabetes mellitus; Z79.4 Long term (current) use of insulin; Z79.82 Long term (current) use of aspirin; Z79.84 Long term (current) use of oral hypoglycemic drugs; Z79.899 Other long term (current) drug therapy

== ENCOUNTER → 2017-11-19 | Outpatient (CLI) | payer OTHER ==
[2017-11-19 11:08] LABS: ALT/SGPT 29 U/L (12-78); BLOOD UREA NITROGEN 10 mg/dl (7-18); CALCIUM 9.7 mg/dl (8.5-10.1); CARBON DIOXIDE 26 mmol/L (21-32); CHOLESTEROL 120 mg/dl (0-200); CREATININE 0.69 mg/dl (0.60-1.20); GLUCOSE 144 mg/dl (70-99); POTASSIUM 4.3 mmol/L (3.5-5.1); SODIUM 137 mmol/L (136-145)
[2017-11-19 11:11] LABS: AST/SGOT 12 U/L (15-37); LDL CHOLESTEROL CALCULATED 63 mg/dl
[2017-11-19 11:27] LABS: HEMOGLOBIN A1C 6.3 % (4.5-5.6)
== END | disposition home or self-care (01) ==
LOC: C.LAB1850 09:43
PROVIDERS: ATTEND Internal Medicine
DX: E78.5 Hyperlipidemia, unspecified (principal); E11.9 Type 2 diabetes mellitus without complications; E53.8 Deficiency of other specified B group vitamins

== ENCOUNTER 2017-11-24 12:08 | Emergency (ER) | payer OTHER ==
[~2017-11-24] VITALS: Ht 162.6 cm; Wt 62.3 kg
[2017-11-24 12:12] VITALS: TEMP 36.4; Ht 162.6 cm; Wt 62.3 kg
[2017-11-24] MEDS ORDERED: ONDANSETRON 4MG OD TAB PO ONE (13:00)
[2017-11-24] MEDS ORDERED: ONDA4TAB10 SL (13:04)
--- NOTE | 2017-11-24 13:06 | EMERGENCY ROOM VISIT NOTE ---
History Report prepared by Anthony: Virgilio Gamble Under the Supervision of: Dr. Meng Haynes D.O. First contact with patient: 12:43 Chief Complaint: CONGESTION Stated Complaint: SINUS & SICK Nursing Triage Summary: patient states she has been having sinus problems for awhile. New complaint of nausea History of Present Illness The patient is a 62 year old female who presents to the Emergency Room with complaints of flu like symptoms that began 1 week ago. She states she saw Dr. Fish who gave her Amoxicillin which she has not been able to keep down. She complains of nausea, vomiting, runny nose, and sinus problems. She denies diarrhea. Source of History: patient Onset: 1 week ago Position: other (global) Timing: constant Associated Symptoms: + nausea, + vomiting Note: Patient complains of runny nose and sinus problems. Review of Systems See HPI for pertinent positives & negatives. A total of 10 systems reviewed and were otherwise negative. Past Medical & Surgical Medical Problems: (1) Arm pain, right (2) Arm pain, right (3) DIAB LORA WO COMPL, TYPE II OR UNSPEC TYPE, NOT UNCNTRLD (4) Hand contusion (5) HYPERLIPIDEMIA NEC/NOS (6) HYPERTENSION NOS (7) Sinusitis (8) Viral URI with cough Family History Diabetes mellitus Social History Smoking Status: Current Every Day Smoker Alcohol Use: none Drug Use: none Marital Status: single Housing Status: lives alone Occupation Status: disabled Current/Historical Medications Scheduled Aspirin (Aspirin Ec), 81 MG PO DAILY Cyanocobalamin (Vitamin B-12), 1,000 MCG PO DAILY Insulin Glargine (Lantus), 12 UNITS SC QAM Lisinopril (Lisinopril), 2.5 MG PO HS Metformin Hcl (Glucophage), 500 MG PO TID Simvastatin (Zocor), 20 MG PO HS Allergies Coded Allergies: Hydrocodone (Verified Adverse Reaction, Unknown, nausea, 11/24/17) [employer] Tramadol (Verified Adverse Reaction, Unknown, nausea, 11/24/17) [employer] Physical Exam Vital Signs Date Time Temp Pulse Resp B/P (MAP) Pulse Ox O2 Delivery O2 Flow Rate FiO2 11/24/17 12:23 Room Air 11/24/17 12:12 36.4 92 20 124/66 95 Room Air Physical Exam CONSTITUTIONAL/VITAL SIGNS: Reviewed / noted above. GENERAL: Non-toxic in appearance. INTEGUMENTARY: Warm, dry, and [place]. HEAD: Normocephalic. EYES: without scleral icterus or trauma. ENT/OROPHARYNX: clear and moist. LYMPHADENOPATHY/NECK: Is supple without lymphadenopathy or meningismus. RESPIRATORY: Lungs clear and equal. CARDIOVASCULAR: Regular rate and rhythm. GI/ABDOMEN: Soft and nontender. No organomegaly or pulsatile mass. No rebound or guarding. Normal bowel sounds. EXTREMITIES: Warm and well perfused. BACK: No CVA tenderness. NEUROLOGICAL: Intact without focal deficits. PSYCHIATRIC: normal affect. MUSCULOSKELETAL: Normally developed with good muscle tone. Medical Decision & Procedures Medications Administered Medications (Trade) Dose Ordered Sig/Domenica Route Start Time Stop Time Status Last Admin Dose Admin Ondansetron HCl (Zofran Odt) 4 mg ONE ONCE PO 11/24/17 13:00 11/24/17 13:01 DC 11/24/17 12:54 4 MG ED Course 1243: Previous medical records were reviewed. The patient was evaluated in room C12. A complete history and physical examination was performed. 1300: Zofran Odt, 4mg PO. 1310: On reevaluation, the patient is doing well. I discussed the results and findings with the patient. She verbalized agreement of the treatment plan. She was discharged home. Medical Decision Differential includes viral illness, influenza, streptococcal pharyngitis, meningitis, pneumonia, sinusitis, UTI, pyelonephritis, otitis media. Medication Reconcilliation Current Medication List: was personally reviewed by me Blood Pressure Screening Patient's blood pressure: Normal blood pressure Blood pressure disposition: Did not require urgent referral Impression Primary Impression: Nausea & vomiting Additional Impression: Sinusitis Scribe Attestation The scribe's documentation has been prepared under my direction and personally reviewed by me in its entirety. I confirm that the note above accurately reflects all work, treatment, procedures, and medical decision making performed by me. Departure Information Prescriptions Ondasetron Odt (ZOFRAN ODT) 4 Mg Tab 4 MG SL Q6H for Nausea, #30 TAB Prov: Meng Haynes D.O. 11/24/17 Referrals Aldair Fish M.D. (PCP) Patient Instructions My [facility] Additional Instructions Zofran: Allow one tablet to dissolve under the tongue every 6 hours as needed for nausea or vomiting. Continue medication prescribed by her PCP yesterday. Problem Qualifiers
[2017-11-24 13:26] VITALS: BP 118/50; PULSE 83; O2SAT 95
== END 2017-11-24 13:27 | disposition home or self-care (01) ==
LOC: C.EDB 12:09 → C.EDC 13:27
DX: R11.2 Nausea with vomiting, unspecified (principal); J32.9 Chronic sinusitis, unspecified; E11.9 Type 2 diabetes mellitus without complications; I10 Essential (primary) hypertension; Z83.3 Family history of diabetes mellitus; F17.210 Nicotine dependence, cigarettes, uncomplicated; Z79.82 Long term (current) use of aspirin; Z79.4 Long term (current) use of insulin; Z79.84 Long term (current) use of oral hypoglycemic drugs; Z79.899 Other long term (current) drug therapy

== ENCOUNTER 2021-08-09 14:07 | Inpatient (IN) ==
[2021-08-09] MEDS ORDERED: SODIUM CHLORIDE 0.9% 500 ML IV STA (14:40)
--- NOTE | 2021-08-09 14:49 | Emergency Department Note ---
Impression & Plan Cerebrovascular accident ADMISSION ED Provider Note HPI: The patient is a 66-year-old female with longstanding history of smoking, insulin-dependent diabetes, hypertension, hyperlipidemia, presents the emergency department with a chief complaint of right-sided weakness. Patient states that she has had the symptoms for about the past 2 to 3 days. She states that she has had approximately 3 falls at home secondary to weakness on the right side. She states that she has noted some weakness in her right lower extremity and her right upper extremity. She is also noted to have some mild right-sided facial droop on arrival. Patient states that the symptoms seem to have been worsening over the past 2 to 3 days. She was seen by her PCP today and referred to the emergency room over possible subacute stroke. On arrival to the ED the patient is hemodynamically stable, she is alert, she is saturating well on room air and is overall nontoxic-appearing on my initial assessment. ROS: -Neuro: Right-sided weakness *10 point review systems was conducted and is otherwise negative unless stated above *Outpatient medications and allergy history reviewed PE: General: Alert, NAD HEENT: Normocephalic, atraumatic, trachea midline Eyes: Extraocular eye movement is intact, no scleral erythema Pulmonary: Clear to auscultation bilaterally, no wheezing Cardio: Regular rate and rhythm GI: Abdomen is soft, nontender : No suprapubic tenderness MSK: No evidence of trauma or malformation of the extremities, no edema Skin: No evidence of rash Neuro: Patient is alert, follows commands appropriately, there is mild to moderate drift appreciated with testing against gravity of the right upper extremity and right lower extremity, mild right-sided facial droop, there is mild to moderate ataxia on [id number] testing on the right side, Psychiatric: Cooperative security monitor: Order placed, patient is in sinus rhythm on the monitor EKG: Sinus rhythm with a rate of 81, no acute ischemic changes NIH SCALE: 1A: Level of consciousness Alert; keenly responsive 0 1B: Ask month and age Both questions right 0 1C: 'Blink eyes' & 'squeeze hands' Performs both tasks 0 2: Horizontal extraocular movements Normal 0 3: Visual morgan No visual loss 0 4: Facial palsy Minor paralysis (flat nasolabial fold, smile asymmetry) +1 5A: Left arm motor drift No drift for 10 seconds 0 5B: Right arm motor drift Drift, but doesn't hit bed +1 6A: Left leg motor drift No drift for 5 seconds 0 6B: Right leg motor drift Drift, but doesn't hit bed +1 7: Limb Ataxia Ataxia in 1 Limb +1 8: Sensation Normal; no sensory loss 0 9: Language/aphasia Normal; no aphasia 0 10: Dysarthria Normal 0 11: Extinction/inattention No abnormality 0 TOTAL NIH: 4 Medical Decision Making: Patient presented to the emergency department with symptoms concerning for subacute stroke, she has had some right-sided weakness, multiple falls, she ambulates extremities spontaneously however she does have some drift of the upper extremity and lower extremity on the right side with testing against gravity, also noted of some mild right-sided facial droop. CT imaging of the head without contrast shows evidence of what appears to be a 1.3 cm lesion on the left side concerning for subacute stroke. Patient was given aspirin in the ED, she would not be considered a candidate for TPA given that she has had symptoms now for multiple days. Lab work is otherwise not emergently remarkable, troponin is negative x1, EKG does not show any ischemic changes. I discussed the above findings with the patient, she initially wanted to sign out AGAINST MEDICAL ADVICE however I did advise her that the risk of leaving would be worsening of subacute stroke up to and including or permanent disability. Further discussion with the patient she is in agreement for admission. I discussed the above findings with the on-call hospitalist team for [facility] and the patient was accepted to a telemetry bed for secondary stroke work-up. Patient was in agreement to this plan and she was admitted in stable condition. * Diagnosis: Subacute stroke * Disposition: Admission * CRITICAL CARE TIME: Migue Pineda DO Emergency Medicine Past Med/Surg History Medical History Atherosclerosis of aorta Diabetes mellitus Dyslipidemia Mitral valve prolapse syndrome Ulnar neuropathy Vitamin B12 deficiency Surgical History History of elbow surgery S/P tubal ligation Family History Father Family history of heart disease Mother Family history of diabetes mellitus Brother Family history of diabetes mellitus Grandfather (Maternal) Myocardial infarction Grandmother (Maternal) Myocardial infarction Denies family history of Ovarian cancer Prostate cancer Breast cancer Colorectal cancer Social History Smoking Status: Current every day smoker Tobacco Type: Cigarettes Age Started Using Tobacco: 20; packs per day: 0.5; Years Smoked: 38; Cigarettes Per Day: 10 OR LESS; Second Hand Exposure: Yes; Do You Dip or Chew Tobacco: No; Tobacco Cessation Education Requested by Patient: No Hx Alcohol Use: No Hx Substance Use: No Preferred Language: Armenian Communication Ability: Effective Visual Impairment: No Limitations Hearing Ability: Normal Vp Revenue Cycle Required: No Beliefs That Will Affect Care: None marital status: / Current Living Situation: Alone Current Living Situation Comment: Patients valeria lives with her current occupational status: unemployed and disabled current occupation: homemaker Other Information That Helps Us Care for You: No Feels Safe at Home: Yes Safety Concerns: Feels Safe At This Time Childhood Exposure to Second-Hand Smoke: Yes (MOTHER AND AUNT) Dental Care, Regularly: Yes Physical Activity Frequency: Does not Exercise Seatbelt Use: always Sunscreen Use: Yes Assistive Devices: Glasses Allergies Allergies Allergy/AdvReac Type Severity Reaction Status Date / Time hydrocodone AdvReac Mild nausea Verified 08/09/21 13:02 tramadol AdvReac Mild nausea Verified 08/09/21 13:02 Home Meds Home Medications Medication Instructions Recorded Confirmed cyanocobalamin (vitamin B-12) 1,000 mcg PO QAM 05/05/19 08/09/21 1,000 mcg capsule aspirin 81 mg tablet,delayed 81 mg PO QAM tab 09/05/19 08/09/21 release cholecalciferol (vitamin D3) 1,250 50,000 unit PO Q14D 08/05/21 08/09/21 mcg (50,000 unit) capsule lisinopril 2.5 mg tablet 2.5 mg PO QAM 08/05/21 08/09/21 metformin 500 mg tablet 500 mg PO TIDM 08/05/21 08/09/21 Previous Rx's Medication Instructions Recorded lancets (OneTouch UltraSoft #100 ea 03/08/20 Lancets) pen needle, diabetic 31 gauge x #1200 ea 10/25/20 5/16" (BD Ultra-Fine Short Pen Needle) simvastatin 20 mg tablet 20 mg PO HS #90 tab 07/14/21 blood sugar diagnostic #200 ea 08/09/21 insulin glargine 100 unit/mL (3 12 unit SQ QAM #15 ml 08/09/21 mL) subcutaneous pen (Lantus Solostar U-100 Insulin) Results & Data (ED) Vital Signs Vital Signs - 24 hr 08/09/21 14:16 08/09/21 14:31 08/09/21 14:40 Temperature 36.4 C L Temperature Source Temporal Artery Scan Pulse Rate 127 H 92 H 89 Pulse Rate [Apical] Pulse Rate from SpO2 Sensor 91 H 86 Pulse Rhythm Regular Pulse Rhythm [Apical] Respiratory Rate 18 26 H 39 H Respiratory Effort / Characteristics Respiratory Depth Respiratory Pattern Blood Pressure 155/72 H 136/80 Blood Pressure [Left Arm] Blood Pressure Mean 99 98 Blood Pressure Mean [Left Arm] Blood Pressure Position Sitting Blood Pressure Position [Left Arm] Pulse Oximetry 94 94 93 Oxygen Delivery Method Room Air Room Air Sepsis Recent Fever Within 48 Hours No Sepsis New/Unexplained Change in Mental Status No Sepsis Action Taken by Nursing No Action Required 08/09/21 15:21 08/09/21 17:20 Temperature Temperature Source Pulse Rate Pulse Rate [Apical] 81 83 Pulse Rate from SpO2 Sensor Pulse Rhythm Pulse Rhythm [Apical] Regular Regular Respiratory Rate 16 21 Respiratory Effort / Characteristics Non-Labored Spontaneous Non-Labored Spontaneous Respiratory Depth Normal Normal Respiratory Pattern Regular Regular Blood Pressure Blood Pressure [Left Arm] 142/66 H 166/80 H Blood Pressure Mean Blood Pressure Mean [Left Arm] 91 108 Blood Pressure Position Blood Pressure Position [Left Arm] Lying Lying Pulse Oximetry 97 96 Oxygen Delivery Method Room Air Room Air Sepsis Recent Fever Within 48 Hours Sepsis New/Unexplained Change in Mental Status Sepsis Action Taken by Nursing Laboratory Data Result diagrams: 08/10/21 05:33 08/10/21 05:33 Lab Results 08/09/21 08/09/21 08/09/21 Range/Units 14:35 14:35 14:35 WBC 9.98 (4.8-10.8) K/uL RBC 4.65 (4.2-5.4) M/uL Hgb 15.2 (12.0-16.0) g/dL Hct 42.2 (37-47) % MCV 90.8 (80-100) fL MCH 32.7 (25-34) pg MCHC 36.0 (32-36) g/dL RDW Std Deviation 42.2 (36.4-46.3) fL RDW Coeff of Juanito 12.8 (11.5-14.5) % Plt Count 313 (130-400) K/uL MPV 9.6 (7.4-10.4) fL Immature Gran % (Auto) 0.3 % Neut % (Auto) 69.9 % Lymph % (Auto) 19.9 % [place] % (Auto) 9.5 % Eos % (Auto) 0.2 % Baso % (Auto) 0.2 % Neut # (Auto) 6.97 H (1.4-6.5) K/uL Lymph # (Auto) 1.99 (1.2-3.4) K/uL [place] # (Auto) 0.95 H (0.11-0.59) K/uL Eos # (Auto) 0.02 (0-0.5) K/uL Baso # (Auto) 0.02 (0-0.2) K/uL Immature Gran # (Auto) 0.03 H (0.00-0.02) K/uL PT 10.3 (9.0-12.0) Seconds INR 1.0 (0.9-1.1) APTT 25.6 (21.0-31.0) Seconds PTT Ratio 1.0 Sodium 135 L (136-145) mmol/L Potassium 3.7 (3.5-5.1) mmol/L Chloride 105 (98-107) mmol/L Carbon Dioxide 21 (21-32) mmol/L Anion Gap 10.0 (3-11) BUN 8 (7-18) mg/dl Creatinine 0.62 (0.6-1.2) mg/dl Est Cr Clr Drug Dosing Not Reportable Est GFR ( Amer) 108.1 ml/min Est GFR (Non-Af Amer) 93.3 ml/min BUN/Creatinine Ratio 12.7 (10-20) Glucose 111 H (70-99) mg/dl POC Glucose (70-99) mg/dl Calcium 9.7 (8.5-10.1) mg/dl Total Bilirubin 0.8 (0.2-1) mg/dl AST 20 (15-37) U/L ALT 33 (12-78) U/L Alkaline Phosphatase 91 (45-117) U/L Troponin I < 0.015 (0-0.045) ng/ml Total Protein 7.7 (6.4-8.2) gm/dl Albumin 4.0 (3.4-5.0) gm/dl Globulin 3.7 (2.5-4.0) gm/dl Albumin/Globulin Ratio 1.1 (0.9-2) Lipase 58 L (73-393) U/L Urine Color Urine Appearance (Clear) Urine pH (4.5-7.5) Ur Specific [place] (1.000-1.030) Urine Protein (Negative) Urine Glucose (UA) (Negative) Urine Ketones (Negative) Urine Blood (Negative) Urine Nitrite (Negative) Urine Bilirubin (Negative) Urine Urobilinogen (Negative) Ur Leukocyte Esterase (Negative) Urine WBC (Auto) (0-5) /hpf Urine RBC (Auto) (0-4) /hpf U Hyaline Cast (Auto) (0-5) /lpf U Epithel Cells (Auto) (0-5) /lpf Urine Bacteria (Auto) (Negative) COVID-19 Eval Order SARS-CoV-2 (PCR) (Negative) 08/09/21 08/09/21 08/09/21 Range/Units 15:29 15:34 18:17 WBC (4.8-10.8) K/uL RBC (4.2-5.4) M/uL Hgb (12.0-16.0) g/dL Hct (37-47) % MCV (80-100) fL MCH (25-34) pg MCHC (32-36) g/dL RDW Std Deviation (36.4-46.3) fL RDW Coeff of Juanito (11.5-14.5) % Plt Count (130-400) K/uL MPV (7.4-10.4) fL Immature Gran % (Auto) % Neut % (Auto) % Lymph % (Auto) % [place] % (Auto) % Eos % (Auto) % Baso % (Auto) % Neut # (Auto) (1.4-6.5) K/uL Lymph # (Auto) (1.2-3.4) K/uL [place] # (Auto) (0.11-0.59) K/uL Eos # (Auto) (0-0.5) K/uL Baso # (Auto) (0-0.2) K/uL Immature Gran # (Auto) (0.00-0.02) K/uL PT (9.0-12.0) Seconds INR (0.9-1.1) APTT (21.0-31.0) Seconds PTT Ratio Sodium (136-145) mmol/L Potassium (3.5-5.1) mmol/L Chloride (98-107) mmol/L Carbon Dioxide (21-32) mmol/L Anion Gap (3-11) BUN (7-18) mg/dl Creatinine (0.6-1.2) mg/dl Est Cr Clr Drug Dosing Est GFR ( Amer) ml/min Est GFR (Non-Af Amer) ml/min BUN/Creatinine Ratio (10-20) Glucose (70-99) mg/dl POC Glucose 85 (70-99) mg/dl Calcium (8.5-10.1) mg/dl Total Bilirubin (0.2-1) mg/dl AST (15-37) U/L ALT (12-78) U/L Alkaline Phosphatase (45-117) U/L Troponin I (0-0.045) ng/ml Total Protein (6.4-8.2) gm/dl Albumin (3.4-5.0) gm/dl Globulin (2.5-4.0) gm/dl Albumin/Globulin Ratio (0.9-2) Lipase (73-393) U/L Urine Color Yellow Urine Appearance Clear (Clear) Urine pH 5.0 (4.5-7.5) Ur Specific [place] 1.011 (1.000-1.030) Urine Protein Negative (Negative) Urine Glucose (UA) Negative (Negative) Urine Ketones 2+ H (Negative) Urine Blood 1+ H (Negative) Urine Nitrite Negative (Negative) Urine Bilirubin Negative (Negative) Urine Urobilinogen Negative (Negative) Ur Leukocyte Esterase Negative (Negative) Urine WBC (Auto) 1-5 (0-5) /hpf Urine RBC (Auto) 0-4 (0-4) /hpf U Hyaline Cast (Auto) 1-5 (0-5) /lpf U Epithel Cells (Auto) 10-20 H (0-5) /lpf Urine Bacteria (Auto) Negative (Negative) COVID-19 Eval Order Covid19 at [facility] SARS-CoV-2 (PCR) (Negative) 10/19/21 Range/Units 18:17 WBC (4.8-10.8) K/uL RBC (4.2-5.4) M/uL Hgb (12.0-16.0) g/dL Hct (37-47) % MCV (80-100) fL MCH (25-34) pg MCHC (32-36) g/dL RDW Std Deviation (36.4-46.3) fL RDW Coeff of Juanito (11.5-14.5) % Plt Count (130-400) K/uL MPV (7.4-10.4) fL Immature Gran % (Auto) % Neut % (Auto) % Lymph % (Auto) % [place] % (Auto) % Eos % (Auto) % Baso % (Auto) % Neut # (Auto) (1.4-6.5) K/uL Lymph # (Auto) (1.2-3.4) K/uL [place] # (Auto) (0.11-0.59) K/uL Eos # (Auto) (0-0.5) K/uL Baso # (Auto) (0-0.2) K/uL Immature Gran # (Auto) (0.00-0.02) K/uL PT (9.0-12.0) Seconds INR (0.9-1.1) APTT (21.0-31.0) Seconds PTT Ratio Sodium (136-145) mmol/L Potassium (3.5-5.1) mmol/L Chloride (98-107) mmol/L Carbon Dioxide (21-32) mmol/L Anion Gap (3-11) BUN (7-18) mg/dl Creatinine (0.6-1.2) mg/dl Est Cr Clr Drug Dosing Est GFR ( Amer) ml/min Est GFR (Non-Af Amer) ml/min BUN/Creatinine Ratio (10-20) Glucose (70-99) mg/dl POC Glucose (70-99) mg/dl Calcium (8.5-10.1) mg/dl Total Bilirubin (0.2-1) mg/dl AST (15-37) U/L ALT (12-78) U/L Alkaline Phosphatase (45-117) U/L Troponin I (0-0.045) ng/ml Total Protein (6.4-8.2) gm/dl Albumin (3.4-5.0) gm/dl Globulin (2.5-4.0) gm/dl Albumin/Globulin Ratio (0.9-2) Lipase (73-393) U/L Urine Color Urine Appearance (Clear) Urine pH (4.5-7.5) Ur Specific [place] (1.000-1.030) Urine Protein (Negative) Urine Glucose (UA) (Negative) Urine Ketones (Negative) Urine Blood (Negative) Urine Nitrite (Negative) Urine Bilirubin (Negative) Urine Urobilinogen (Negative) Ur Leukocyte Esterase (Negative) Urine WBC (Auto) (0-5) /hpf Urine RBC (Auto) (0-4) /hpf U Hyaline Cast (Auto) (0-5) /lpf U Epithel Cells (Auto) (0-5) /lpf Urine Bacteria (Auto) (Negative) COVID-19 Eval Order SARS-CoV-2 (PCR) NEGATIVE (Negative) Administered Medications Heparin Sodium (Porcine) (Heparin Sod 5,000 Unit/0.5 Ml Vial) 5,000 units SQ Q8 [facility] Stop: 09/09/21 05:59 Last Admin: 08/10/21 05:36 Dose: Not Given Documented by: [id number] Insulin Glargine (Insulin Glargine Solostar 100 Units/Ml 3 Ml Pen) 12 units SQ QAM [facility] Stop: 09/09/21 08:59 Last Admin: 08/10/21 09:01 Dose: 12 units Documented by: [id number] Cosigned by: [id number] Miscellaneous (Remove Nicoderm Patch) 1 ea N/A DAILY@[id number] [facility] Stop: 09/08/21 18:44 Last Admin: 08/09/21 21:06 Dose: Not Given Documented by: [id number] Nicotine (Nicotine 21 Mg/24 Hr Tdsy) 21 mg TD QAM [facility] Stop: 09/08/21 18:44 Last Admin: 08/10/21 09:00 Dose: 21 mg Documented by: [id number] Admin: 08/09/21 19:05 Dose: 21 mg Documented by: [id number] Discontinued Medications Aspirin (Aspirin Chew 324 Mg) 324 mg PO NOW STA Stop: 08/09/21 15:24 Last Admin: 08/09/21 15:33 Dose: 324 mg Documented by: [id number] Aspirin (Aspirin Chew 324 Mg) 324 mg PO NOW STA Stop: 08/09/21 16:12 Last Admin: 08/09/21 16:43 Dose: Not Given Documented by: [id number] Sodium Chloride (Nss) 500 mls @ 999 mls/hr IV .Q31M STA Stop: 08/09/21 15:10 Last Infusion: 08/09/21 21:03 Dose: 0 mls/hr Documented by: [id number] Admin: 08/09/21 15:25 Dose: 999 mls/hr Documented by: [id number] Imaging Data Radiologist's Impression: Chest X-Ray 08/09/21 14:40 XR chest 1V portable HISTORY: Atypical Chest Pain COMPARISON: Chest 08/23/2015. FINDINGS: No pneumothorax or no pleural effusions. There is mild diffuse interstitial thickening, unchanged. This is likely chronic. No new focal lung consolidations to suggest pneumonia. No evidence for pulmonary edema. The heart is normal in size. Calcifications noted at the aortic knob. IMPRESSION: No acute process. ACT 112: Negative or not required by law. Electronically signed by: Blaise Rand M.D. 08/09/2021 3:[address] 08/09/21 14:[address] DOSE: 994.86 mGycm HISTORY: R sided deficit, weakness x 2 days TECHNIQUE: Multiaxial CT images of the head were performed without the use of intravenous contrast. Automated exposure control was utilized for this study. A dose lowering technique was utilized adhering to the principles of ALARA. Comparison: Head CT 10/30/2017. Findings: The paranasal sinuses and mastoid air cells are clear. The calvarium and skull base are intact. There is no mass, hematoma, or midline shift. There is a 1.2 cm linear focus of encephalomalacia within the posterior limb of the right internal capsule consistent with an old lacunar infarct. There is 1.3 cm round hypodense focus within the posterior limb of the left internal capsule. This favors a subacute infarct.. White matter hypodensity is nonspecific but suggestive of microvascular ischemic change. The ventricles and sulci demonstrate mild age-related involutional changes. Impression: 1. A 1.3 cm round hypodense focus within the posterior limb of the left internal capsule. This favors a subacute infarct. 2. A 1.2 linear focus of encephalomalacia within the posterior limb of the right internal capsule likely represents an old lacunar infarct. 3. Mild atrophy and microvascular ischemic changes are noted. ACT 112: Negative or not required by law. Electronically signed by: Blaise Rand M.D. 08/09/2021 3:07 PM Discharge Plan Visit Data Chief Complaint: Neuro Symptoms/Deficit Stated Complaint: R SIDE NUMBNESS,THINK STROKE SX,REF BY DOC ED Provider: Migue Pineda Discharge Problem: Cerebrovascular accident Patient Disposition: Admitted As Inpatient Discharge Instructions Interventions: ED Discharge Assessment Last Done: 08/09/21 20:33
[2021-08-09 14:59] LABS: Basophils # (auto) 0.02 K/uL (0-0.2); Basophils % (auto) 0.2 %; Eosinophils # (auto) 0.02 K/uL (0-0.5); Eosinophils % (auto) 0.2 %; Hematocrit (blood only) 42.2 % (37-47); Hemoglobin 15.2 g/dL (12.0-16.0); Immature Granulocytes # (auto) 0.03 K/uL (0.00-0.02); Immature Granulocytes % (auto) 0.3 %; Lymphocytes # (auto) 1.99 K/uL (1.2-3.4); Lymphocytes % (auto) 19.9 %; Mean Corpuscular Hemoglobin 32.7 pg (25-34); Mean Corpuscular Volume 90.8 fL (80-100); Mean Platelet Volume 9.6 fL (7.4-10.4); Monocytes # (auto) 0.95 K/uL (0.11-0.59); Monocytes % (auto) 9.5 %; Neutrophils # (auto) 6.97 K/uL (1.4-6.5); Neutrophils % (auto) 69.9 %; Platelet Count 313 K/uL (130-400); RDW Coefficient of Variation 12.8 % (11.5-14.5); RDW Standard Deviation 42.2 fL (36.4-46.3); Red Blood Count 4.65 M/uL (4.2-5.4); White Blood Count 9.98 K/uL (4.8-10.8)
[2021-08-09 15:07] LABS: Alanine Aminotransferase 33 U/L (12-78); Aspartate Aminotransferase 20 U/L (15-37); BUN Creatinine Ratio 12.7 (10-20); Blood Urea Nitrogen 8 mg/dl (7-18); Calcium 9.7 mg/dl (8.5-10.1); Carbon Dioxide 21 mmol/L (21-32); Chloride 105 mmol/L (98-107); Est GFR (African American) 108.1 ml/min; Est GFR (Non-African American) 93.3 ml/min; Glucose 111 mg/dl (70-99); Lipase 58 U/L (73-393); Potassium 3.7 mmol/L (3.5-5.1); Sodium 135 mmol/L (136-145)
--- NOTE | 2021-08-09 15:08 | CT Scan Report ---
HEAD CT NONCONTRAST CT DOSE: 994.86 mGycm HISTORY: R sided deficit, weakness x 2 days TECHNIQUE: Multiaxial CT images of the head were performed without the use of intravenous contrast. A utomated exposure control was utilized for this study. A dose lowering technique was utilized adheri ng to the principles of ALARA. Comparison: Head CT 10/30/2017. Findings: The paranasal sinuses and mastoid air cells are clear. The calvarium and skull base are int act. There is no mass, hematoma, or midline shift. There is a 1.2 cm linear focus of encephalomalacia within the posterior limb of the right internal capsule consistent with an old lacunar infarct. Ther e is 1.3 cm round hypodense focus within the posterior limb of the left internal capsule. This favors a subacute infarct.. White matter hypodensity is nonspecific but suggestive of microvascular ischemi c change. The ventricles and sulci demonstrate mild age-related involutional changes. Impression: 1. A 1.3 cm round hypodense focus within the posterior limb of the left internal capsule. This favors a subacute infarct. 2. A 1.2 linear focus of encephalomalacia within the posterior limb of the right internal capsule lik yudith represents an old lacunar infarct. 3. Mild atrophy and microvascular ischemic changes are noted. ACT 112: Negative or not required by law. Electronically signed by: Blaise Rand M.D. 08/09/2021 3:07 PM
[2021-08-09 15:11] LABS: Albumin Globulin Ratio 1.1 (0.9-2); Alkaline Phosphatase 91 U/L (45-117); Bilirubin,Total 0.8 mg/dl (0.2-1); Globulin 3.7 gm/dl (2.5-4.0); Total Protein 7.7 gm/dl (6.4-8.2); Troponin I < 0.015 ng/ml (0-0.045)
--- NOTE | 2021-08-09 15:11 | XRay Report ---
XR chest 1V portable HISTORY: Atypical Chest Pain COMPARISON: Chest 08/23/2015. FINDINGS: No pneumothorax or no pleural effusions. There is mild diffuse interstitial thickening, unc hanged. This is likely chronic. No new focal lung consolidations to suggest pneumonia. No evidence fo r pulmonary edema. The heart is normal in size. Calcifications noted at the aortic knob. IMPRESSION: No acute process. ACT 112: Negative or not required by law. Electronically signed by: Blaise Rand M.D. 08/09/2021 3:10 PM
[2021-08-09 15:21] LABS: Partial Thromboplastin Time 25.6 Seconds (21.0-31.0); Prothrombin Time 10.3 Seconds (9.0-12.0)
[2021-08-09] MEDS ORDERED: ASPIRIN CHEW 324 MG PO STA ×2 (15:23→16:11)
[2021-08-09 16:10] LABS: Appearance Urine Clear (Clear); Bacteria Urine Automated Negative (Negative); Bilirubin Urine Negative (Negative); Blood Urine 1+ (Negative); Color Urine Yellow; Glucose Urine UA Negative (Negative); Ketones Urine 2+ (Negative); Leukocyte Esterase Urine Negative (Negative); Nitrite Urine Negative (Negative); Protein Urine Negative (Negative); RBC Urine Automated 0-4 /hpf (0-4); Specific Gravity Urine 1.011 (1.000-1.030); Urobilinogen Urine Negative (Negative)
--- NOTE | 2021-08-09 17:01 | History & Physical Report ---
Date of Service August 09, 2021 Assessment & Plan (1) Stroke: Plan: Subacute ischemic stroke noted on ct scan. Patient has multiple risk factors, including smoking and having diabetes. Stroke protocol placed. No tPA as patient is out of window. will consult neuro. will order echocardiogram will place on high intensity statin will place on plavix. (2) Diabetes mellitus: Plan: glycemic control ordered. will check A1C (3) Dyslipidemia: Plan: add high intensity statin. (4) Smoker: Plan: will place on nicotine patch dvt: heparin History of Present Illness Chief Complaint: right sidedweakness Primary Care Provider: Aldair Fish MD 66 yo female reports having right sided weakness for the past 3-4 days. Her son reports that she has been having right sided weakness with multiple falls at home. This has alaso been accompanied by his mother (the patient) spacing out and just staring into the distance, or responding to questions slowly. He reports that she has not been able to write well since Sunday and is concerned that she had a stroke. Patient was today was told by her PCP's office that clinically it appears that she had a stroke and she should come to the ER. Allergies Allergy/AdvReac Type Severity Reaction Status Date / Time hydrocodone AdvReac Mild nausea Verified 08/09/21 13:02 tramadol AdvReac Mild nausea Verified 08/09/21 13:02 Home Medications Medication Instructions Recorded Confirmed Type cyanocobalamin (vitamin B-12) 1,000 mcg PO QAM 05/05/19 08/09/21 History 1,000 mcg capsule aspirin 81 mg tablet,delayed 81 mg PO QAM tab 09/05/19 08/09/21 History release lancets (OneTouch UltraSoft #100 ea 03/08/20 08/09/21 Rx Lancets) pen needle, diabetic 31 gauge x #1200 ea 10/25/20 08/09/21 Rx 5/16" (BD Ultra-Fine Short Pen Needle) simvastatin 20 mg tablet 20 mg PO HS #90 tab 07/14/21 08/09/21 Rx cholecalciferol (vitamin D3) 1,250 50,000 unit PO Q14D 08/05/21 08/09/21 History mcg (50,000 unit) capsule lisinopril 2.5 mg tablet 2.5 mg PO QAM 08/05/21 08/09/21 History metformin 500 mg tablet 500 mg PO TIDM 08/05/21 08/09/21 History blood sugar diagnostic #200 ea 08/09/21 Rx insulin glargine 100 unit/mL (3 12 unit SQ QAM #15 ml 08/09/21 Rx mL) subcutaneous pen (Lantus Solostar U-100 Insulin) Past Med/Surg History Medical History Atherosclerosis of aorta Diabetes mellitus Dyslipidemia Mitral valve prolapse syndrome Ulnar neuropathy Vitamin B12 deficiency Surgical History History of elbow surgery S/P tubal ligation Family History Father Family history of heart disease Mother Family history of diabetes mellitus Brother Family history of diabetes mellitus Grandfather (Maternal) Myocardial infarction Grandmother (Maternal) Myocardial infarction Denies family history of Ovarian cancer Prostate cancer Breast cancer Colorectal cancer Social History Smoking Status: Current every day smoker Tobacco Type: Cigarettes Age Started Using Tobacco: 20; packs per day: 0.5; Years Smoked: 38; Cigarettes Per Day: 10 OR LESS; Second Hand Exposure: Yes; Do You Dip or Chew Tobacco: No; Tobacco Cessation Education Requested by Patient: No Hx Alcohol Use: No Hx Substance Use: No Preferred Language: Romansh Communication Ability: Effective Visual Impairment: No Limitations Hearing Ability: Normal 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 Beliefs That Will Affect Care: None marital status: / Current Living Situation: Alone Current Living Situation Comment: Patients valeria lives with her current occupational status: unemployed and disabled current occupation: homemaker Other Information That Helps Us Care for You: No Feels Safe at Home: Yes Safety Concerns: Feels Safe At This Time Childhood Exposure to Second-Hand Smoke: Yes (MOTHER AND AUNT) Dental Care, Regularly: Yes Physical Activity Frequency: Does not Exercise Seatbelt Use: always Sunscreen Use: Yes Assistive Devices: Glasses Review of Systems Review of Systems: All systems reviewed & are unremarkable except as noted in HPI & below Physical Exam Constitutional: WD/WN, vitals as above Eyes: PERRL, conjunctivae normal, anicteric sclerae ENMT: external ear and nose normal, oropharynx normal Neck: trachea midline, no thyromegaly Respiratory: normal respiratory effort, lungs clear to auscultation Cardiovascular: RRR, no murmur, no edema Gastrointestinal (Abdomen): normal bowel sounds, soft, nontender, no hepatosplenomegaly Musculoskeletal: no cyanosis or clubbing, extremities motor strength 5/5 (except for right arm: 4+/5,) Skin: no rashes, warm and dry Neurologic: awake Right sided facial droop. Psychiatric: A+Ox3, euthymic affect Lymphatic: no cervical or axillary lymphadenopathy Results & Data Results & [facility] ([facility]) Vital Signs (Past 12 Hours) Vital Signs Temp Pulse Pulse Resp BP BP Pulse Ox 08/09/21 15:21 81 16 142/66 H 97 08/09/21 14:40 89 39 H 93 08/09/21 14:31 92 H 26 H 136/80 94 08/09/21 14:16 36.4 C L 127 H 18 155/72 H 94 PG Care Time/CCT Total # of Minutes Spent Total Time Spent with Patient: Total time spent is greater than 50% in coordination of care (as documented) at patient's floor/unit and/or counseling patient: Coding Level of Care Code 37006 Initial Inpt Care Lvl 3 Diagnoses Stroke I63.9 Diabetes mellitus E11.9 Dyslipidemia E78.5 Smoker F17.200
[2021-08-09] MEDS ORDERED: PHARMACIST DISCHARGE MED REC CONSULT PRN (17:04)
[2021-08-09] MEDS ORDERED: GLUCOSE 10 TABS/TUBE PO PRN (17:30)
[2021-08-09] MEDS ORDERED: GLUCOSE 40% GEL 15 GM TUBE PO PRN (17:30)
[2021-08-09] MEDS ORDERED: GLUCAGON FOR INJ 1 MG VIAL IM PRN (17:30)
[2021-08-09] MEDS ORDERED: CARBOHYDRATES FOR HYPOGLYCEMIA PO PRN (17:30)
[2021-08-09] MEDS ORDERED: DEXTROSE 50% 50 ML SYRINGE IV PRN (17:30)
[2021-08-09] MEDS: NICOTINE 21 MG/24 HR TDSY TD SCH (19:05)
[2021-08-10] MEDS ORDERED: HEPARIN SOD 5,000 UNIT/0.5 ML VIAL SQ SCH (06:00)
[2021-08-10 06:03] LABS: Basophils # (auto) 0.02 K/uL (0-0.2); Basophils % (auto) 0.3 %; Eosinophils # (auto) 0.07 K/uL (0-0.5); Hematocrit (blood only) 41.6 % (37-47); Hemoglobin 14.3 g/dL (12.0-16.0); Immature Granulocytes # (auto) 0.02 K/uL (0.00-0.02); Immature Granulocytes % (auto) 0.3 %; Lymphocytes # (auto) 2.26 K/uL (1.2-3.4); Lymphocytes % (auto) 31.1 %; Mean Corpuscular Hemoglobin 32.1 pg (25-34); Mean Corpuscular Hgb Conc 34.4 g/dL (32-36); Mean Corpuscular Volume 93.5 fL (80-100); Mean Platelet Volume 9.2 fL (7.4-10.4); Monocytes # (auto) 0.75 K/uL (0.11-0.59); Monocytes % (auto) 10.3 %; Neutrophils # (auto) 4.14 K/uL (1.4-6.5); Platelet Count 286 K/uL (130-400); RDW Coefficient of Variation 12.8 % (11.5-14.5); RDW Standard Deviation 43.6 fL (36.4-46.3); Red Blood Count 4.45 M/uL (4.2-5.4); White Blood Count 7.26 K/uL (4.8-10.8)
[2021-08-10 06:42] LABS: BUN Creatinine Ratio 14.3 (10-20); Calcium 9.1 mg/dl (8.5-10.1); Creatinine Clr Calc Pharmacy 63.7 ml/min; Est GFR (African American) 97.2 ml/min; Est GFR (Non-African American) 83.8 ml/min; Potassium 3.6 mmol/L (3.5-5.1)
[2021-08-10 07:56] LABS: Estimated Average Glucose 134 mg/dl; Hemoglobin A1C 6.3 % (4.5-5.6)
[2021-08-10] MEDS ORDERED: CLOPIDOGREL BISULFATE 75 MG TAB PO SCH (09:00)
[2021-08-10] MEDS ORDERED: INSULIN GLARGINE SOLOSTAR 100 UNITS/ML 3 ML PEN SQ SCH (09:00)
[2021-08-10] MEDS ORDERED: ASPIRIN 81 MG ECTAB PO SCH (09:00)
[2021-08-10] MEDS: NICOTINE 21 MG/24 HR TDSY TD SCH (09:00)
[2021-08-10] MEDS ORDERED: lisinopril 2.5 MG TAB PO SCH (09:00)
--- NOTE | 2021-08-10 11:07 | Neurology Consultation ---
Date of Consultation August 10, 2021 Assessment & Plan (1) Cerebrovascular accident: Subacute lacunar infarct within the posterior limb of the left internal capsule presenting with a mild right hemiparesis affecting the face arm and leg. Patient has a chronic lacunar infarct within the posterior limb of the right internal capsule as well but does not have a chronic residual left hemiparesis. Cigarette smoking is a significant stroke risk factor for this patient. I did discuss the importance of smoking cessation going forward although patient adamantly refuses. She will need additional counseling regarding smoking cessation. I agree with the addition of clopidogrel to patient's current medication regimen. Would recommend that she continue with both clopidogrel and aspirin for the next 3 weeks, then transition to clopidogrel monotherapy, 75 mg/day. Agree with high intensity statin, atorvastatin 80 mg/day as ordered. Follow-up with results of CT angiography and echocardiography. If patient does have a significant stenotic lesion of either internal carotid artery would recommend obtaining consultation with vascular surgery as well. Would recommend a brain MRI although patient adamantly refuses due to severe claustrophobia. Would also consider obtaining 30-day mobile cardiac outpatient telemetry. History of Present Illness Reason for Consultation: stroke Requesting Physician: Shawn Alvarez Attending Physician: Allegra Jean-Baptiste MD History of Present Illness The patient is a 66-year-old female with a chief complaint of right-sided weakness that began 3 days ago. She complains of mild persistent weakness affecting the right side of the face, arm and leg. She has had a few associated falls. Patient denies experiencing any headache, vision disturbance, slurred speech, or difficulty swallowing. Past medical history notable for diabetes mellitus, dyslipidemia, and cigarette smoking. She did have a CT of the head completed during her initial assessment in the emergency department that revealed a probable 1.3 cm subacute infarct within the posterior limb of the left internal capsule as well as a chronic lacunar infarct within the posterior limb of the right internal capsule. No hemorrhage. The patient is extremely claustrophobic and has refused MRI. CT angiography of the head and neck and echocardiography have been ordered. Patient was taking daily low-dose aspirin and simvastatin as an outpatient. Clopidogrel has been added to her medication regimen. Simvastatin has been discontinued in favor of atorvastatin 80 mg/day. Allergies Allergy/AdvReac Type Severity Reaction Status Date / Time hydrocodone AdvReac Mild nausea Verified 08/09/21 13:02 tramadol AdvReac Mild nausea Verified 08/09/21 13:02 Home Medications Medication Instructions Recorded Confirmed Type cyanocobalamin (vitamin B-12) 1,000 mcg PO QAM 05/05/19 08/09/21 History 1,000 mcg capsule aspirin 81 mg tablet,delayed 81 mg PO QAM tab 09/05/19 08/09/21 History release lancets (OneTouch UltraSoft #100 ea 03/08/20 08/09/21 Rx Lancets) pen needle, diabetic 31 gauge x #1200 ea 10/25/20 08/09/21 Rx 5/16" (BD Ultra-Fine Short Pen Needle) simvastatin 20 mg tablet 20 mg PO HS #90 tab 07/14/21 08/09/21 Rx cholecalciferol (vitamin D3) 1,250 50,000 unit PO Q14D 08/05/21 08/09/21 History mcg (50,000 unit) capsule lisinopril 2.5 mg tablet 2.5 mg PO QAM 08/05/21 08/09/21 History metformin 500 mg tablet 500 mg PO TIDM 08/05/21 08/09/21 History blood sugar diagnostic #200 ea 08/09/21 Rx insulin glargine 100 unit/mL (3 12 unit SQ QAM #15 ml 08/09/21 Rx mL) subcutaneous pen (Lantus Solostar U-100 Insulin) Patient History Medical History Atherosclerosis of aorta Diabetes mellitus Dyslipidemia Mitral valve prolapse syndrome Ulnar neuropathy Vitamin B12 deficiency Surgical History History of elbow surgery S/P tubal ligation Family History Father Family history of heart disease Mother Family history of diabetes mellitus Brother Family history of diabetes mellitus Grandfather (Maternal) Myocardial infarction Grandmother (Maternal) Myocardial infarction Denies family history of Ovarian cancer Prostate cancer Breast cancer Colorectal cancer Social History Smoking Status: Current every day smoker Tobacco Type: Cigarettes Age Started Using Tobacco: 20; packs per day: 0.5; Years Smoked: 38; Cigarettes Per Day: 10 OR LESS; Second Hand Exposure: Yes; Do You Dip or Chew Tobacco: No; Tobacco Cessation Education Requested by Patient: No Hx Alcohol Use: No Hx Substance Use: No Preferred Language: Kenyan Communication Ability: Effective Visual Impairment: No Limitations Hearing Ability: Normal Pharmacy Coordinator Required: No Beliefs That Will Affect Care: None marital status: / Current Living Situation: Alone Current Living Situation Comment: Patients grandophelia lives with her current occupational status: unemployed and disabled current occupation: homemaker Other Information That Helps Us Care for You: No Feels Safe at Home: Yes Safety Concerns: Feels Safe At This Time Childhood Exposure to Second-Hand Smoke: Yes (MOTHER AND AUNT) Dental Care, Regularly: Yes Physical Activity Frequency: Does not Exercise Seatbelt Use: always Sunscreen Use: Yes Assistive Devices: Glasses Review of Systems Constitutional: no fever and no chills Eyes: no blind spots and no diplopia Ear, Nose, Mouth, Throat: no ear pain and no hearing loss Respiratory: no cough and no dyspnea Cardiovascular: no chest pain and no palpitations Gastrointestinal: no constipation and no diarrhea/loose stools Genitourinary: no urinary urgency and no urinary incontinence Musculoskeletal: no muscle weakness and no muscle atrophy Integumentary: no rash and no lesions Neurologic: as per Subjective / HPI and + localized weakness; no abnormal speech Psychiatric: no behavioral changes, no depression, no abnormal sleep pattern and no anxiety Hematologic / Lymphatic: no easy bruising and no lymphadenopathy Exam (Neuro) Constitutional: well developed and well nourished; no acute distress Eyes: normal visual morgan by confrontation, PERRL, normal accommodation and EOM intact bilaterally; no fundoscopic abnormality, no nystagmus and no pa pilledema Cardiovascular: Vessels: normal carotid upstroke; no carotid bruit Neurologic: Oriented to:: Person, Place and Time Memory: Short Term Intact and Remote Intact Attention: Span Intact and Concentration Intact Langu age: Naming Objects and Repeating Phrases Speech Fluency: negative Dysarthria Speech Aphasia: negative Aphasia Fund of Knowledge: Current Events, Past History and Vocabulary Cranial Nerves: Normal II (Visual morgan full to confrontation, visual acuity normal), III, IV, (Pupils equal round reactive to light and accommodation, eye movements normal), V (Facial sensation intact), VIII (Hearing intact), IX, X (Palate elevates to midline), XI (Shoulder shrug intact) and XII (Tongue protrudes to midline); Abnorm VII (There is flattening of the right nasolabial fold) Motor Strength: Hemiparesis (Mild) Laterality: Right; negative Normal Lower Extremities, Normal Upper Extremities or Pronator Drift Motor Tone: Normal Lower Extremities and Normal Upper Extremities Muscle Bulk/Involuntary Movements: No Involuntary Movements; negative Muscle Atrophy Sensation: Light Touch Intact, Pain/Temperature Intact, Vibration Intact and Proprioception Intact Coordination: Normal, Limited Balance, Finger-Nose Abnormal Laterality: Right and Heel-Kyle Abnormal Laterality: Right; negative Dysdiadochokinesia Deep Tendon Reflexes: Rt Triceps: 2+, Lt Triceps: 2+, Rt Biceps: 2+, Lt Biceps: 2+, Rt Brachioradialis: 2+, Lt Brachioradialis: 2+, Rt Patellar: 2+, Lt Patellar: 2+, Rt Ankle: 2+ and Lt Ankle: 2+ Special Tests: Babinski Present (R>L) Details: Gait not tested in the context of patient's current neurological/medical condition. Results & Data ([facility]) Vital Signs (Past 12 Hours) Vital Signs Temp Pulse Pulse Resp BP Pulse Ox 08/10/21 08:00 36.5 C 69 86 20 96/60 L 96 08/10/21 03:18 36.8 C 85 16 100/62 95 08/09/21 23:43 36.6 C 85 16 133/74 98 08/09/21 23:19 82 PG Care Time/CCT Total # of Minutes Spent Total Time Spent with Patient: Total time spent is greater than 50% in coordination of care (as documented) at patient's floor/unit and/or counseling patient: Coding Level of Care Code 20014 Initial Inpt Care Lvl 3 Diagnoses Cerebrovascular accident I63.9
[2021-08-10] MEDS ORDERED: OPTIRAY 320 125ml IV ONE (11:52)
[2021-08-10] MEDS ORDERED: CYANOCOBALAMIN 500 MCG TABLET (VITAMIN B-12) PO SCH (12:15)
--- NOTE | 2021-08-10 13:00 | CT Scan Report ---
CT ANGIOGRAPHY OF THE NECK WITH CONTRAST CLINICAL HISTORY: Cerebrovascular accident. COMPARISON STUDY: Carotid ultrasound April 03, 2013. Technique: CT angiography of the carotid and vertebral arteries was obtained using Optiray and 3D rec onstruction on an independent workstation. NASCET criteria was utilized. Automated exposure control was utilized for the study. A dose lowering technique was utilized adhering to the principles of ALA RA. Findings: Emphysema is noted within visualized portions of the lung apices. There is no acute cervica l spine fracture. There is no cervical lymphadenopathy. This exam is significantly compromised by mot ion artifact. This particularly affects visualization of the bilateral carotid bifurcations and proxi mal bilateral cervical internal carotid arteries. Mild plaque is noted. Although sensitivity for dete ction of stenosis or dissection is diminished, there is no definite evidence for stenosis or dissecti on within the bilateral common carotid, cervical internal carotid or vertebral arteries. IMPRESSION: Exam significantly compromised by motion artifact which particularly affects visualization of the ana ateral carotid bifurcations and proximal bilateral cervical internal carotid arteries. Although sensi tivity diminished on this exam, no definite stenosis or dissection. ACT 112: Negative or not required by law. Electronically signed by: Kwabena Estes M.D. 08/10/2021 12:58 PM
--- NOTE | 2021-08-10 13:04 | CT Scan Report ---
CTA ANGIOGRAPHY OF THE HEAD CLINICAL HISTORY: Cerebrovascular accident. COMPARISON STUDY: MRI the brain May 09, 2018. Head CT August 09, 2021. TECHNIQUE: Helical axial images of the head were obtained following uneventful intravenous administr ation of cc of Optiray. Sagittal and coronal reconstructions were viewed as well as maximal intensity projections on an independent 3-D workstation. Automated exposure control was utilized for the stud y. A dose lowering technique was utilized adhering to the principles of ALARA. CT DOSE: 531.01 mGy.cm FINDINGS: Sensitivity for detection of intracranial hemorrhage is diminished on this contrast enhance d exam but none is identified. There is a 1.5 cm hypodensity within the left internal capsule as show n on prior head CT. Ventricular system is unremarkable. Basal cisterns are patent. No central vessel occlusion is identified. The bilateral M1, M2, A1 and A2 segments are patent. There is moderate plaqu e within the bilateral cavernous carotids. There is mild stenosis of the left cavernous carotid. Ther e is no intracranial aneurysm. The posterior circulation is intact. There is no dissection within the intracranial vessels. IMPRESSION: 1. No central vessel occlusion. No intracranial aneurysm. 2. Moderate plaque within bilateral cavernous carotids. Mild stenosis of the left cavernous carotid. 3. 1.5 cm hypodensity within the left internal capsule as shown on recent head CT. This favors an acu te to subacute infarct. ACT 112: Negative or not required by law. Electronically signed by: Kwabena Estes M.D. 08/10/2021 1:02 PM
--- NOTE | 2021-08-10 14:49 | XCELERA ---
[id number]
[2021-08-10] MEDS ORDERED: STROKE PATIENT DISCHARGE STA (15:18)
--- NOTE | 2021-08-10 15:24 | Discharge Summary ---
Date of Service August 10, 2021 Admission HPI Per Admitting Provider 66 yo female reports having right sided weakness for the past 3-4 days. Her son reports that she has been having right sided weakness with multiple falls at home. This has alaso been accompanied by his mother (the patient) spacing out and just staring into the distance, or responding to questions slowly. He reports that she has not been able to write well since Sunday and is concerned that she had a stroke. Patient was today was told by her PCP's office that clinically it appears that she had a stroke and she should come to the ER. Principal Diagnosis Acute CVA Discharge Exam Constitutional WD/WN, vitals as above Eyes PERRL, conjunctivae normal, anicteric sclerae Neck trachea midline, no thyromegaly Respiratory normal respiratory effort, lungs clear to auscultation Cardiovascular RRR, no murmur, no edema Chest (Breasts) Chest: normal inspection of chest Gastrointestinal (Abdomen) normal bowel sounds, soft, nontender, no hepatosplenomegaly Musculoskeletal Extremities: extremities normal to inspection; no cyanosis and no clubbing Skin no rashes, warm and dry Neurologic moves all extremities, + focal motor deficit (4/5 strength in RUE and RLE) and awake Psychiatric A+Ox3, euthymic affect Lymphatic no lymphedema Discharge Data Allergies Allergy/AdvReac Type Severity Reaction Status Date / Time hydrocodone AdvReac Mild nausea Verified 08/09/21 13:02 tramadol AdvReac Mild nausea Verified 08/09/21 13:02 Consultations 08/09/21 16:56 ED Decision to Admit Stat 08/09/21 17:04 Consult Neurology Routine Ordered Studies 08/09/21 14:41 CT head/brain wo con Stat 08/10/21 09:14 CT angio head w con Urgent CT angio neck with con Urgent Hospital Course (1) Stroke: Subacute ischemic stroke left internal capsule noted on ct scan. CTA head and neck no stenoses or occlusion ECHO negative bubble study tele no events Patient has multiple risk factors, including smoking and having diabetes. No tPA as patient is out of window. consult neuro appreciated--> recommend DAPT x 3 weeks with ASA, Plavix then Plavix monotherapy -started high intensity statin with atorva 80 and dc simvastatin -recommend quitting smoking which she declines she declined MRI due to claustrophobia recommend no driving and will submit form to DMV given weakness in RLE -will set up 30 day event monitor for occult afib monitoring (2) Diabetes mellitus: glycemic control ordered. continue metformin, well controlled (3) Dyslipidemia: add high intensity statin. (4) Smoker: will place on nicotine patch, advised cessation dvt: heparin Dispo-PT/OT recommended rehab but pt adamantly refused and wants to go home, accepting the risk of falls she is agreeable to home health I certify that this patient is under my care and that I, or a physicians regulatory assistant working with me, had a face to-face encounter that meets the home health [id number] encounter requirements with this patient. The encounter with the patient was in whole, or in part, for the following medical condition, which is the primary reason for home health care (list medical condition): CVA I certify that, based on my findings, the following services are medically necessary home health services: My clinical findings support the need for the above services because: OT Assess ADL Status and Restore Function w ADLs PT Assessment for Endurance / Balance / Strength PT Eval for Safety and Mobility PT Eval for Safety, Gait Training, Assistive Devices PT Gait and Balance Training, Strengthening and Safety Skilled Nsg Assessment S/S to Report to Provider Further, I certify that my clinical findings support that this patient is homebound (i.e. absences from home require considerable and taxing effort and are for medical reasons or anabaptist services or infrequently or of short duration when for other reasons) because: Poor Endurance; SOB Minimal Exertion Supportive Aid - Walker Certification for Home Health Services: Based on the above findings, I certify that this patient is confined to the home and needs intermittent penitentiary care, physical therapy and/or speech therapy or continues to need occupational therapy. The patient is under my care, and I have initiated the establishment of the plan of care. This patient will be followed by a physician who will periodically review the plan of care. Total Time Total Time Spent Total Time Spent (In Minutes): 35 min Discharge Plan Discharge Items Patient Disposition: Home - Home Health Services Reason For Visit: STROKE Discharge Diagnosis: Acute CVA Condition on Discharge: Fair Activity: As commented below Lifting: Gradually increase as tolerated Bathing: No limitations Exercise/Sports: Gradually increase as tolerated Exercise Comment: with home PT/OT Driving/Machine Use: No driving until cleared by your PCP Weightbearing: Full weightbearing Non-emergency contact: Primary Care Provider and Neurologist Call non-emergency contact if: you have any medication questions and your symptoms worsen Follow-up/Referrals: Que Harkins MD [Physician] - (Follow up within 1-2 months ) Aldair Fish MD [Primary Care Provider] - (Follow up within 1-2 weeks.) Diet: Carb Consistent or DM2 and Heart Healthy Addtl Attending Provider Instructions: You were admitted and found to have a stroke.It is important for you to take Plavix and Aspirin together for 3 weeks, but then ONLY TAKE the Plavix and STOP the aspirin. You were also started on atorvastatin and should STOP your simvastatin as this is a better cholesterol medication to prevent stroke. Quitting smoking will greatly reduce your risk of stroke in the future. A cardiac event monitor will be sent to your house for you to wear to check for irregular heart beat that can put you at increased risk for stroke. Do not take your metformin again until 08/12 due to your interaction with the dye from the CT scan. Risk Factors for Stroke: You can reduce your chances of stroke by working with your medical provider to adopt a healthy lifestyle. Some specific ways to lower your chance of stroke are: * If you are a smoker, now is the time to stop smoking cigarettes * If you are diabetic, improve the control of your blood sugars * Avoid excessive amounts of alcohol * Control high blood pressure * Lose weight if you are overweight * Be sure to lead an active lifestyle * Eat a healthy diet low in salt, cholesterol and fat You should know about other risk factors for stroke that you are unable to control. These include: * Age 55 years or older * Male gender * Certain racial groups: , or / * Family History of Stroke, Mini stroke or Heart Attack * Sickle Cell Disease Follow Up: It is important for you to keep your follow up appointments with your medical provider. Who to Call and When: Medical Emergencies: Call 911 immediately if you experience any of the following warning signs and symptoms of Stroke: * Sudden numbness or weakness of the face, arm or leg, especially on one side of the body * Sudden confusion, trouble speaking or understanding * Sudden trouble seeing in one or both eyes * Sudden trouble walking, dizziness, loss of balance or coordination * Sudden severe headache with no cause Do not delay calling 911 if you experience any warning signs or symptoms of a stroke. Delay in seeking medical attention may affect what treatments can be given to you. . Pending Studies at Discharge: No Stand-Alone Forms: Medications to Prevent Stroke, My [facility], Smoking Cessation Medications and DC Order Prescriptions: New clopidogrel 75 mg Tablet 75 mg PO QAM Qty: 30 RF: 0 atorvastatin 80 mg tablet 80 mg PO DAILY Qty: 30 RF: 0 Continued (DME) lancets [OneTouch UltraSoft Lancets] Misc See Rx Instructions .ROUTE .MEDSUPPLY Qty: 100 RF: 3 (DME) pen needle, diabetic [BD Ultra-Fine Short Pen Needle] 31 gauge x 5/16" needle See Rx Instructions .ROUTE .MEDSUPPLY Qty: 1200 RF: 2 (DME) OneTouch Ultra Blue Test Strip Strip See Dose Instructions .ROUTE .MEDSUPPLY Qty: 200 RF: 3 Lantus Solostar U-100 Insulin 100 unit/mL (3 mL) insulin pen 12 unit SQ QAM Qty: 15 RF: 2 cyanocobalamin (vitamin B-12) 1,000 mcg capsule 1,000 mcg PO QAM RF: 0 metformin 500 mg tablet 500 mg PO TIDM RF: 0 lisinopril 2.5 mg tablet 2.5 mg PO QAM RF: 0 cholecalciferol (vitamin D3) 1,250 mcg (50,000 unit) capsule 50,000 unit PO Q14D RF: 0 aspirin 81 mg tablet,delayed release (DR/EC) 81 mg PO QAM 21 Days Qty: 21 RF: 0 Discontinued simvastatin 20 mg tablet 20 mg PO HS Qty: 90 RF: 3 Discharge Orders: Discharge Order (Routine); Ordered 08/10/21 Ordered By: Allegra Jarrett/Other Patient Handouts: A1C, Managing Type 2 Diabetes Admission Data Admit Date/Time: 08/09/21 18:41 Attending Provider: Allegra Jean-Baptiste Admit Provider: Shawn Alvarez Primary Care Provider: Aldair Fish Other Providers: Shawn Alvarez ; Que Harkins Coding Level of Care Code D/C DAY MANAGEMENT >30 MINS Diagnoses Stroke I63.9 Diabetes mellitus E11.9 Dyslipidemia E78.5 Smoker F17.200
--- NOTE | 2021-08-10 15:27 | Pharmacy Report ---
Pharmacist Stroke Counseling - Date of Service August 10, 2021 - Scope: Pharmacy has been consulted to provide medication discharge counseling for this patient admitted with CVA as per the Pharmacist Discharge Counseling for Stroke Patients Protocol. - Medications on Discharge: Home Medications Medication Instructions Recorded Confirmed cyanocobalamin (vitamin B-12) 1,000 mcg PO QAM 05/05/19 08/09/21 1,000 mcg capsule cholecalciferol (vitamin D3) 1,250 50,000 unit PO Q14D 08/05/21 08/09/21 mcg (50,000 unit) capsule lisinopril 2.5 mg tablet 2.5 mg PO QAM 08/05/21 08/09/21 metformin 500 mg tablet 500 mg PO TIDM 08/05/21 08/09/21 New Rx's Medication Instructions Recorded lancets (OneTouch UltraSoft #100 ea 03/08/20 Lancets) pen needle, diabetic 31 gauge x #1200 ea 10/25/20 5/16" (BD Ultra-Fine Short Pen Needle) blood sugar diagnostic #200 ea 08/09/21 insulin glargine 100 unit/mL (3 12 unit SQ QAM #15 ml 08/09/21 mL) subcutaneous pen (Lantus Solostar U-100 Insulin) aspirin 81 mg tablet,delayed 81 mg PO QAM 21 Days #21 tab 08/10/21 release atorvastatin 80 mg tablet 80 mg PO DAILY #30 tab 08/10/21 clopidogrel 75 mg tablet 75 mg PO QAM #30 tab 08/10/21 - Action: The above medications, specifically ones for stroke treatment/prophylaxis, have been reviewed in detail with the patient and/or patient customer development representative(s) prior to discharge. This includes indication, common adverse reactions, drug interactions, and medication administration. Medication counseling has been employed using the teach-back method to ensure understanding. - Outcome: The patient and/or patient customer development representative(s) have demonstrated understanding of the medications. Additional comments: [] Thank you for allowing pharmacy to be involved in the care of this patient. Please call [phone] with any additional questions
[2021-08-10] MEDS ORDERED: ATORVASTATIN 40 MG TAB PO SCH (21:00)
--- NOTE | 2021-08-11 11:55 | Electrocardiogram Report ---
Test Reason : Blood Pressure : / mmHG Vent. Rate : 081 BPM Atrial Rate : 081 BPM P-R Int : 180 ms QRS Dur : 090 ms QT Int : 396 ms P-R-T Axes : 066 088 048 degrees QTc Int : 460 ms Sinus rhythm with Premature supraventricular complexes Otherwise normal ECG When compared with ECG of 25-NOV-2020 21:57, Premature ventricular complexes are no longer Present Premature supraventricular complexes are now Present Nonspecific T wave abnormality no longer evident in Anterior leads Confirmed by Lc Valencia ([id number]) on 08/11/2021 11:54:30 AM Referred By: Aldair Fish Confirmed By:Lc Valencia
[2021-08-21] MEDS ORDERED: ERGOCALCIFEROL 50,000 UNITS 1250 MCG CAP PO SCH (09:00)
[2021-08-21] MEDS ORDERED: NON-FORMULARY MEDICATION (Cholecalciferol (Vitamin D3) 1,250 mcg (50,000 unit) capsule) PO SCH (09:00)
== END 2021-08-10 16:00 | disposition home health service (06) | DRG 65 ==
LOC: ED 14:07 → 2S 18:41 → SUATTDRO 18:41 → 2S 20:33